=== PATIENT | male | born 1960 | race Caucasian/White ===

== ENCOUNTER 2022-08-08 15:10 | Inpatient (IN) | payer OTHER, SELFPAY ==
[2022-08-08] VITALS (18 sets, daily range): BP systolic 105–142; BP diastolic 58–101; PULSE 65–112; RESP 10–18; TEMP 36.8–37.4; O2SAT 94–100; BMI 19.6
--- NOTE | ~2022-08-08 | XR_ITS ---
XR chest 2V DATE: 08/08/2022 15:51 INDICATION: Midsternal chest pain today TECHNIQUE: PA and lateral views COMPARISON: None FINDINGS: There is moderate bilateral pulmonary hyperinflation. No pulmonary infiltrate or consolidat ion, pleural effusion or pulmonary vascular congestion or pneumothorax. Normal heart size. No hilar or mediastinal enlargement. Included skeletal structures are unremarkable. IMPRESSION: Moderate bilateral hyperinflation; no active cardiopulmonary disease Reviewed, dictated and finalized at location A. IMPRESSION: Moderate bilateral hyperinflation; no active cardiopulmonary diseas e
--- NOTE | 2022-08-08 15:12 | ECG_ITS ---
Measurements Intervals [place] Rate: 98 P: 78 MS: 136 QRS: 47 QRSD: 90 T: 59 QT: 328 QTc: 419 Interpretive Statements SINUS RHYTHM WITH SINUS ARRHYTHMIA BASELINE WANDER- I, AVL, AVF, V4-6 NORMAL ECG NO PREVIOUS ECG AVAILABLE FOR COMPARISON Electronically Signed On 08-08-2022 18:52:17 CDT by Shant Barraza D.O.
[2022-08-08 15:27] LABS: Basophils Absolute Auto 0.1 K/mm3 (0.0-0.1); Basophils Percent Auto 1.1 % (0.2-1.2); Eosinophils Absolute Auto 0.1 K/mm3 (0-0.3); Eosinophils Percent Auto 1.6 % (0-4.4); Hematocrit 43.4 % (42.0-52.0); Hemoglobin 14.6 g/dL (14.0-18.0); Immature Granulocyte Absolute 0.04 K/mm3 (0.00-0.031); Immature Granulocyte Percent A 0.5 % (0-0.5); Lymphocytes Absolute Auto 2.81 K/mm3 (0.9-3.2); Lymphocytes Percent Auto 31.8 % (18.3-44.2); Mean Corpuscular HGB Conc 33.6 g/dl (32-36); Mean Corpuscular Hemoglobin 30.9 pg (26-34); Mean Corpuscular Volume 91.8 fl (80-100); Mean Platelet Volume 10.9 fl (7.4-10.4); Monocytes Absolute Auto 0.7 K/mm3 (0.1-0.6); Monocytes Percent Auto 7.7 % (2.6-8.5); Neutrophils Absolute Auto 5.1 K/mm3 (1.3-6.7); Neutrophils Percent Auto 57.3 % (45.5-73.1); Platelet Count Result 212 k/mm3 (150-375); Red Blood Count 4.73 M/mm3 (4.6-6.20); Red Cell Distribution Width 12.9 % (11.5-14.5); White Blood Count 8.8 K/mm3 (4.5-10.0)
[2022-08-08] MEDS: ASPIRIN 81 MG CHEWABLE TABLET 324 MG PO (15:31)
--- NOTE | 2022-08-08 15:36 | ED.CHESTPAIN ---
HPI - Chest Pain General Chief Complaint: Chest Pain <OSMAR Nieto Last Filed: 08/08/22 19:56> Stated Complaint: chest pain <OSMAR Nieto Last Filed: 08/08/22 19:56> Time Seen by Provider: 08/08/22 15:31 <OSMAR Nieto Last Filed: 08/08/22 19:56> History of Present Illness HPI narrative: Patient is a 70-year-old male with no known past medical history here for evaluation of chest tightness today. Patient states that he was power washing his driveway when he started to develop a tightness in the center of his chest and developed some numbness in both of his arms. The pain lasted for about 10 minutes, resolved once patient stopped exerting himself, but did come back when he began to exert himself again. His pain has subsided since but is still present. He has never had a pain like this in the past. He states the pain was associated with some diaphoresis, but no nausea or vomiting. No shortness of breath, fevers or chills, leg swelling. He is a smoker; no drug use. Has never had a cath or stress test. <OSMAR Nieto Last Filed: 08/08/22 19:56> Related Data Allergies/Adverse Reactions: Allergies Allergy/AdvReac Type Severity Reaction Status Date / Time No Known Allergies Allergy Unknown Verified 02/24/15 08:50 <OSMAR Nieto Last Filed: 08/08/22 19:56> Review of Systems Review of Systems: Gen: Denies fevers or chills Eyes: Denies eye pain or visual change ENT: Denies congestion Respiratory: Denies shortness of breath or cough CV: Reports chest pain. Denies chest pain or palpitations GI: Denies abdominal pain nausea, emesis or diarrhea : denies burning, urgency, frequency or hematuria Musculoskeletal: Denies back pain or muscle pain Neuro: Denies numbness, tingling, weakness or focal weakness Skin: Denies rash Except as documented, all other systems reviewed and negative <OSMAR Nieto Last Filed: 08/08/22 19:56> Exam Narrative: APPEARANCE: Well appearing, no pain in distress, well-nourished. Head: Normocephalic and atraumatic. EYES: PERRLA/EOMI, conjunctivae clear NOSE: No nasal drainage EARS: External ear normal in appearance THROAT: Oropharynx is clear. Mucous membranes are moist. NECK: Supple. No adenopathy, no masses. RESPIRATORY:decreased breath sounds in bilateral upper lung murry. Airway patent, respirations nonlabored. no rales, rhonchi, wheezing. CARDIOVASCULAR: Regular rate and rhythm without murmurs, rubs, or gallops. ABDOMINAL: Normoactive bowel sounds. Soft, nontender, nondistended. No rebound tenderness or guarding. MUSCULOSKELETAL: Extremities are warm and well-perfused. Moves all extremities well. No edema. NEURO: Normal speech. No focal neurologic deficits. SKIN: Skin is warm and dry. No rashes. PSYCHIATRIC: Normal affect/mood. 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 I have had [id number] time with the patient. I discussed need for admission. All questions answered. Patient in agreement. <Ralph Richardson MD - Last Filed: 08/08/22 19:50> Vital Signs Vital signs: Vital Signs Pulse Rate 96 08/08/22 15:14 Respiratory Rate 12 08/08/22 15:14 Blood Pressure 142/91 H 08/08/22 15:14 Pulse Oximetry 98 08/08/22 15:14 Oxygen Delivery Room Air 08/08/22 15:14 Pulse Rate 80 08/08/22 19:38 Respiratory Rate 18 08/08/22 19:38 Blood Pressure 115/95 H 08/08/22 19:38 Pulse Oximetry 97 08/08/22 19:38 Oxygen Delivery Room Air 08/08/22 15:37 <Heather Little PA-C - Last Filed: 08/08/22 19:56> Vital Signs Pulse Rate 96 08/08/22 15:14 Respiratory Rate 12 08/08/22 15:14 Blood Pressure 142/91 H 08/08/22 15:14 Pulse Oximetry 98 08/08/22 15:14
[2022-08-08 15:37] LABS: Alanine Aminotransferase 26 U/L (6-50); Albumin Level 4.7 g/dL (3.5-5.1); Alkaline Phosphatase 91 U/L (38-126); Anion Gap 11 mmol/L (8-16); Aspartate Amino Transferase 28 U/L (17-59); Bilirubin,Total 0.6 mg/dL (0.2-1.3); Blood Urea Nitrogen 21 mg/dL (9-20); Calcium 9.7 mg/dL (8.4-10.2); Carbon Dioxide 21 mmol/L (22-30); Chloride 108 mmol/L (98-107); Estimated CRCL calculation 61 ml/min; Estimated Glomerular Filt Rate > 60; Glucose 128 mg/dL (65-110); Lipase 330 U/L (23-300); Potassium 3.9 mmol/L (3.4-5.0); Sodium 140 mmol/L (137-145)
[2022-08-08 15:47] LABS: Troponin I 0.015 ng/mL (0.000-0.034)
[2022-08-08 15:50] LABS: Partial Thromboplastin Time 27.7 SECONDS (22.3-36.8); Prothrombin Time 13.1 Seconds (11.1-14.7)
[2022-08-08 19:17] LABS: Troponin I 0.256 ng/mL (0.000-0.034)
[2022-08-08] MEDS: NITROGLYCERIN SL 0.4 MG TABLET SUBLINGUAL (19:17)
--- NOTE | 2022-08-08 19:18 | PC.NURSE ---
1916: Pt given 0.4 mg nitro; pt rating pain 4/10, BP 134/87
--- NOTE | 2022-08-08 19:59 | PM.IMHP ---
H&P: HPI History of Present Illness Date/Time: 08/08/22 19:59 Chief Complaint: chest pain Narrative: This is a 62-year-old male with past medical history significant for tobacco dependence patient smokes 1 pack of cigarettes daily. 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 emergency room patient got aspirin and nitro which relieved the pain brought to 2/10 intensity. 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 preliminary workup was significant for: SINUS RHYTHM WITH SINUS ARRHYTHMIA BASELINE WANDER- I, AVL, AVF, V4-6 NORMAL ECG NO PREVIOUS ECG AVAILABLE FOR COMPARISON Troponin x3 0.015/ 0.256/ 0.834 chest x-ray was reported as: IMPRESSION: Moderate bilateral hyperinflation; no active cardiopulmonary disease. Review of Systems Review of Systems: patient presents to the emergency room due to retrosternal chest pain Constitutional: Constitutional: Denies chills, Denies fatigue, Denies fever(s), Denies malaise and Denies night sweats Eyes: Eyes: Denies change in vision ENT: Denies dysphagia, Denies vertigo, Denies dizziness and Denies odynophagia Cardiovascular: Cardiovascular: Reports chest pain, Denies syncope, Denies irregular heart rhythm, Reports lightheadedness, Denies radiating jaw, neck or arm pain, Denies palpitations and Denies dyspnea on exertion Respiratory: Respiratory: Denies chest congestion, Denies excessive phlegm production, Denies pain on inspiration and Denies dyspnea on exertion Gastrointestinal: Gastrointestinal: Denies abdominal pain, Denies dyspepsia and Denies heartburn Genitourinary: Genitourinary: Denies dysuria Musculoskeletal: Musculoskeletal: Denies back pain, Reports myalgias and Reports arthralgias Integumentary/Breasts: Skin/Breast: Denies rash Neurologic: Denies vertigo, Denies dizziness, Denies focal weakness and Denies Sensory deficit (Neuro) Psychiatric: Psychiatric: Reports no additional psychiatric complaints and Reports as per HPI Endocrine: Endocrine: Denies cold intolerance, Denies flushing, Denies heat intolerance, Denies polyphagia, Denies polydipsia and Denies palpitations Hematologic/Lymphatic: Hematologic/Lymphatic: Reports no additional hematologic/lymphatic complaints and Reports as per HPI Allergic/Immunologic: Allergic/Immunologic: Reports no additional allergic/immunologic complaints and Reports as per HPI [facility] Family History Family History (Updated 08/08/22 @ 21:38 by Brittany Gamez RN) Other Patient denies significant medical history Social History Social History Smoking packs per day: 1 Smoking cigarettes per day: 20.0 Years smoked: 40 Smoking pack-years: 40.00 Smoking status: Current every day smoker Tobacco type: cigarettes Alcohol intake: never Substance use type: marijuana Last use: occasional use Spiritual care concerns: No Meds Home Medications and Allergies Home Medications Medication Instructions Recorded Confirmed Type No Home Medications 08/08/22 08/08/22 History Allergies Allergy/AdvReac Type Severity Reaction Status Date / Time No Known Allergies Allergy Unknown Verified 02/24/15 08:50 Vital Signs Vital Signs - 24 hr 08/08/22 15:14 08/08/22 15:36 08/08/22 15:37 Pulse Rate 96 81 Respiratory Rate 12 Blood Pressure 142/91 H Pulse Oximetry 98 99 Oxygen Delivery Room Air Room Air
--- NOTE | 2022-08-08 20:01 | PM.CNCAR ---
Assessment and Plan Assessment and plan (1) Acute non-ST elevation myocardial infarction (NSTEMI): Code(s): I21.4 - Non-ST elevation (NSTEMI) myocardial infarction Status: Acute Assessment and Plan: EKG and 1st troponin unremarkable. 2nd troponin elevated at 0.256Received aspirin and continue daily, NTG SL, restart Heparin drip. Trend troponin. Obtain Lipid panel. Start Metoprolol Tartate 12.5 mg BID and Atorvastatin 80 mg daily. Obtain echo. Discuss risks/benefits/alternative to left heart cath and he is agreeable to it. Will inform HCG in AM for it. (2) Tobacco abuse: Code(s): Z72.0 - Tobacco use Status: Acute Assessment and Plan: Counseled regarding smoking cessation. History of Present Illness History of Present Illness Consult date/time: 08/08/22 20:01 Consult reason: chest pain Reason For Visit: chest pain Narrative: 62 yr old man presented to ER with chest pain. He has a history of smoking. Reports he was power washing his house at 1 pm when he noted severe chest tightness associated with sob, diaphoresis and bilateral arm numbness. He rested, had a sandwich and discomfort subsided. He resumed power washing and pain returned, so his brought him to ER. He was given aspirin and NTG SL and pain is about a 2/10 in intensity. He smokes 1 ppd for 40 years. He normally can walk miles without any problems. Denies orthopnea, PND, edema, dizziness, palpitations. Review of Systems Review of Systems: All systems reviewed & are unremarkable except as noted in HPI and below Constitutional: Constitutional: Reports as per HPI, Denies chills and Denies fever(s) Cardiovascular: Cardiovascular: Reports as per HPI, Reports chest pain, Denies irregular heart rhythm, Denies leg edema and Denies lightheadedness Respiratory: Respiratory: Reports as per HPI and Reports dyspnea Gastrointestinal: Gastrointestinal: Reports as per HPI and Denies abdominal pain Genitourinary: Genitourinary: Reports as per HPI and Denies dysuria Musculoskeletal: Musculoskeletal: Reports as per HPI Neurologic: Reports as per HPI, Denies dizziness and Denies syncope Meds Home Medications and Allergies Allergies Allergy/AdvReac Type Severity Reaction Status Date / Time No Known Allergies Allergy Unknown Verified 02/24/15 08:50 Vital Signs Vital Signs - 24 hr 08/08/22 15:14 08/08/22 15:36 08/08/22 15:37 Pulse Rate 96 81 Respiratory Rate 12 Blood Pressure 142/91 H Pulse Oximetry 98 99 Oxygen Delivery Room Air Room Air 08/08/22 15:15 08/08/22 15:31 08/08/22 16:41 Pulse Rate 112 H 92 89 Respiratory Rate 12 13 13 Blood Pressure 142/91 H 127/88 124/87 Pulse Oximetry 98 100 98 Oxygen Delivery 08/08/22 17:30 08/08/22 19:38 Pulse Rate 79 80 Respiratory Rate 11 L 18 Blood Pressure 128/91 H 115/95 H Pulse Oximetry 97 97 Oxygen Delivery Exam Const: General: cooperative, healthy appearing and comfortable Resp: Auscultation: clear to auscultation bilaterally, no crackles, no rales, no rhonchi and no wheezes Cardio: Jugular venous distension: no JVD Rate: regular rate Rhythm: regular rhythm Heart sounds: no murmurs Peripheral pulses: dorsalis pedis present GI: GI Palp: No abdominal tenderness and Yes Soft to palpation Neuro: General: oriented to person, oriented to place and oriented to time Extrem: Right upper extremity: edema Right lower extremity: no edema Left lower extremity: no edema Results Labs and Meds Result diagrams: 08/08/22 15:19 08/08/22 15:19 Lab results: Cardiac Enzymes 08/08/22 08/08/22 Range/Units 15:19 18:33 AST 28 (17-59) U/L Troponin I 0.015 0.256 H* D (0.000-0.034) ng/mL Coagulation 08/08/22 Range/Units 15:19 PT 13.1 (11.1-14.7) Seconds APTT 27.7 (22.3-36.8) SECONDS CBC 08/08/22 Range/Units 15:19 WBC 8.8 (4.5-10.0) K/mm3 RBC 4.73 (4.6-6.20) M/mm3 Hgb 14.6 (14
[2022-08-08] MEDS: HEPARIN SODIUM 5,000 UNITS/ML VIAL 4000 UNITS IV PUSH (20:08)
[2022-08-08] MEDS: HEPARIN SOD/D5W 100 UNITS/ML 25,000 UNITS/250 ML BAG 8 UNITS IV CONT (20:08)
--- NOTE | 2022-08-08 21:41 | ADMGEN ---
This patient, Omar Valente, was admitted to IMU Room 210-01 at 2120 on 08/08/2022. Patient/family oriented to hospital policies and general routines including ID bracelet, bed and alarms, visiting hours, pain management, procedures, bathroom and other care routines, personal items, smoking policy, room service/diet, and visiting hours. Information on how to activate the Rapid Response Team has been discussed. Patient/Family are encouraged to report perceived risks to care and to ask questions if they do not understand what they are told or what they should do.
[2022-08-08] MEDS: METOPROLOL TARTRATE 12.5 MG TABLET PO (21:49)
[2022-08-08] MEDS: ATORVASTATIN 40 MG TABLET 80 MG PO (21:49)
[2022-08-08 22:31] LABS: Troponin I 0.834 ng/mL (0.000-0.034)
--- NOTE | 2022-08-08 22:48 | ECG_ITS ---
Measurements Intervals [place] Rate: 61 P: 68 SC: 152 QRS: 55 QRSD: 98 T: 57 QT: 391 QTc: 394 Interpretive Statements SINUS RHYTHM NORMAL ECG COMPARED TO ECG 08/08/2022 15:17:37 NO SIGNIFICANT CHANGES Electronically Signed On 08-09-2022 6:39:54 CDT by Shant Barraza D.O.
[2022-08-09] VITALS (37 sets, daily range): BP systolic 112–138; BP diastolic 66–96; PULSE 55–89; RESP 10–20; TEMP 36.4–37; O2SAT 95–99
--- NOTE | 2022-08-09 | ECHO_ITS ---
Patient Info Name: Omar Valente Age: 62 years : 1960 Gender: Male Ht: 71 in Wt: 148 lbs BSA: 1.83 m2 HR: 65 bpm BP: 112 / 72 mmHg Technical Quality: Good Exam Date: 08/09/2022 10:55 AM Exam Location: [facility] Patient Status: Inpatient Admit Date: 08/08/2022 Staff Ordering Physician: Shant Barraza DO Piano Professor: Kane Burns RDCS, RT Attending Provider: Kwame Leonard MD Referring Physician: Madi GUTIERREZ; Exam Type: CA echo doppler color flow Study Info Indications I21.4 - Non-ST elevation (NSTEMI) myocardial infarction Complete two-dimensional, color flow and Doppler transthoracic echocardiogram is performed. Strain analysis performed. Summary 1. Complete two-dimensional, color flow and Doppler transthoracic echocardiogram is performed. 2. Left ventricular chamber dimension is normal. 3. Left ventricular systolic function is normal, estimated at 55-60%. 4. The left ventricular diastolic function is grade II diastolic dysfunction. 5. E/e' 5 is not elevated. 6. Global longitudinal strain is abnormal at -15.3%. Left Ventricle E/e' 5 is not elevated. Global longitudinal strain is abnormal at -15.3%. Left ventricular chamber dimension is normal. Left ventricular systolic function is normal, estimated at 55-60%. The left ventricular diastolic function is grade II diastolic dysfunction. Right Ventricle Right ventricular systolic function is normal and with normal TAPSE 2.5 cm. Right ventricular chamber dimension is normal. Left Atria Left atrial chamber dimension is normal. Right Atria Right atrial chamber dimension is normal. Aortic Valve The aortic valve is trileaflet. There is no aortic valve stenosis. There is no aortic valve regurgitation. Pulmonic Valve There is no pulmonic regurgitation. Mitral Valve There is no mitral valve stenosis. There is no mitral valve regurgitation. Tricuspid Valve There is no tricuspid valve regurgitation. Pericardium/Pleural There is no pericardial effusion. Inferior Vena Cava Normal inferior vena cava with >50% collapse upon inspiration consistent with normal right atrial pressure, 5 mmHg. Aorta The aortic root size at the sinus of Valsalva is normal. Left Ventricular Outflow Tract Name Value Normal LVOT 2D LVOT Diameter 2.1 cm LVOT Doppler LVOT Peak Gradient 3 mmHg LVOT Mean Gradient 2 mmHg LVOT VTI 19 cm LVOT VTI/AV VTI Ratio 0.8 LVOT Stroke Volume 66 ml LVOT CO 4.1 l/min LVOT CI 2.2 l/min/m2 Mitral Valve Name Value Normal MV Doppler MV Decel [place] 138 cm/s2 MV PHT 96 ms
[2022-08-09 02:16] LABS: Partial Thromboplastin Time 51.8 SECONDS (22.3-36.8)
[2022-08-09] MEDS: HEPARIN SODIUM 5,000 UNITS/ML VIAL 4000 UNITS IV PUSH (02:36)
--- NOTE | 2022-08-09 07:45 | PM.PNCARD ---
Progress Note: A&P Assessment and Plan (1) Acute non-ST elevation myocardial infarction (NSTEMI): Code(s): I21.4 - Non-ST elevation (NSTEMI) myocardial infarction Status: Acute Assessment and Plan: EKG and 1st troponin unremarkable. 2nd troponin elevated at 0.256 and 3rd elevated at 0.83. Received aspirin and continue daily, NTG SL prn, on Heparin drip, Metoprolol Tartate 12.5 mg BID and Atorvastatin 80 mg daily. Trend troponin. Obtain Lipid panel. Metoprolol Tartate 12.5 mg BID and Atorvastatin 80 mg daily. Obtain echo. Discuss risks/benefits/alternative to left heart cath and he is agreeable to it. Keep NPO. Consult HCG for it. (2) Tobacco abuse: Code(s): Z72.0 - Tobacco use Status: Acute Assessment and Plan: Counseled regarding smoking cessation. Subjective Date/time seen: 08/09/22 07:45 Interval history: Denies any more chest pain, sob. Exam Const: General: cooperative, healthy appearing and comfortable Resp: Auscultation: clear to auscultation bilaterally, no crackles, no rales, no rhonchi and no wheezes Cardio: Jugular venous distension: no JVD Rate: regular rate Rhythm: regular rhythm Heart sounds: no murmurs Peripheral pulses: dorsalis pedis present GI: GI Palp: No abdominal tenderness and Yes Soft to palpation Neuro: General: oriented to person, oriented to place and oriented to time Extrem: Right upper extremity: edema Right lower extremity: no edema Left lower extremity: no edema Objective Data Vital Signs Vital Signs: Vital Signs - 24 hr 08/08/22 15:14 08/08/22 15:36 08/08/22 15:37 Temperature Pulse Rate 96 81 Respiratory Rate 12 Blood Pressure 142/91 H Pulse Oximetry 98 99 Oxygen Delivery Room Air Room Air 08/08/22 15:15 08/08/22 15:31 08/08/22 16:41 Temperature Pulse Rate 112 H 92 89 Respiratory Rate 12 13 13 Blood Pressure 142/91 H 127/88 124/87 Pulse Oximetry 98 100 98 Oxygen Delivery 08/08/22 17:30 08/08/22 19:38 08/08/22 18:45 Temperature Pulse Rate 79 80 68 Respiratory Rate 11 L 18 12 Blood Pressure 128/91 H 115/95 H 118/85 Pulse Oximetry 97 97 96 Oxygen Delivery 08/08/22 19:16 08/08/22 19:39 08/08/22 19:45 Temperature Pulse Rate 83 77 84 Respiratory Rate 12 10 L 12 Blood Pressure 134/87 115/95 H 115/101 H Pulse Oximetry 99 97 94 Oxygen Delivery 08/08/22 20:16 08/08/22 20:30 08/08/22 20:46 Temperature 99.4 F Pulse Rate 72 76 87 Respiratory Rate 10 L 11 L 14 Blood Pressure 105/68 110/78 105/58 L Pulse Oximetry 97 96 97 Oxygen Delivery 08/08/22 21:20 08/08/22 21:49 08/08/22 21:35 Temperature 98.3 F Pulse Rate 74 69 Respiratory Rate 16 Blood Pressure 108/76 Pulse Oximetry 98 Oxygen Delivery Room Air 08/08/22 22:00 08/09/22 00:00 08/09/22 00:00 Temperature 98.6 F Pulse Rate 65 66 Respiratory Rate 16 Blood Pressure 118/73 Pulse Oximetry 98 98 Oxygen Delivery Room Air 08/09/22 00:00 08/09/22 02:00 08/09/22 04:00 Temperature Pulse Rate 69 62 Respiratory Rate Blood Pressure Pulse Oximetry 99 Oxygen Delivery Room Air 08/09/22 04:00 08/09/22 04:00 08/09/22 06:00 Temperature 98.6 F Pulse Rate 60 89 66 Respiratory Rate 18 Blood Pressure 112/72 Pulse Oximetry 99 Oxygen Delivery Intake/Output Intake/Output: Intake & Output 08/06/22 08/07/22 08/08/22 08/09/22 23:59 23:59 23:59 23:59 Output Total 200 200 Balance -200 -200 Meds/Results Medications: Active Medications Generic Name Dose Route Start Last Admin Trade Name Freq PRN Reason Stop Dose Admin Atorvastatin Calcium 80 mg 08/08/22 20:10 08/08/22 21:49 Atorvastatin 40 Mg Tablet PO 80 mg DAILY ALEENA Administration Heparin Sodium (Porcine) 4,000 units 08/08/22 19:32 08/09/22 02:36 Heparin Sodium 5,000 Units/Ml Vial IV PUSH 4,000 units PRN PRN Administration aPTT less than 55 seconds Heparin Sodium (Porcine)
--- NOTE | 2022-08-09 07:50 | PM.PNCARD ---
Progress Note: A&P Assessment and Plan (1) Acute non-ST elevation myocardial infarction (NSTEMI): Code(s): I21.4 - Non-ST elevation (NSTEMI) myocardial infarction Status: Acute Assessment and Plan: EKG and 1st troponin unremarkable. 2nd troponin elevated at 0.256 and 3rd elevated at 0.83. Received aspirin and continue daily, NTG SL prn, on Heparin drip, Metoprolol Tartate 12.5 mg BID and Atorvastatin 80 mg daily. Trend troponin. Obtain Lipid panel. Metoprolol Tartate 12.5 mg BID and Atorvastatin 80 mg daily. Obtain echo. Discuss risks/benefits/alternative to left heart cath and he is agreeable to it. Keep NPO. Consult HCG for it. (2) Tobacco abuse: Code(s): Z72.0 - Tobacco use Status: Acute Assessment and Plan: Counseled regarding smoking cessation. Subjective Date/time seen: 08/09/22 07:50 Interval history: Denies any more chest pain, sob. Exam Const: General: cooperative, healthy appearing and comfortable Resp: Auscultation: clear to auscultation bilaterally, no crackles, no rales, no rhonchi and no wheezes Cardio: Jugular venous distension: no JVD Rate: regular rate Rhythm: regular rhythm Heart sounds: no murmurs Peripheral pulses: dorsalis pedis present GI: GI Palp: No abdominal tenderness and Yes Soft to palpation Neuro: General: oriented to person, oriented to place and oriented to time Extrem: Right upper extremity: edema Right lower extremity: no edema Left lower extremity: no edema Objective Data Vital Signs Vital Signs: Vital Signs - 24 hr 08/08/22 15:14 08/08/22 15:36 08/08/22 15:37 Temperature Pulse Rate 96 81 Respiratory Rate 12 Blood Pressure 142/91 H Pulse Oximetry 98 99 Oxygen Delivery Room Air Room Air 08/08/22 15:15 08/08/22 15:31 08/08/22 16:41 Temperature Pulse Rate 112 H 92 89 Respiratory Rate 12 13 13 Blood Pressure 142/91 H 127/88 124/87 Pulse Oximetry 98 100 98 Oxygen Delivery 08/08/22 17:30 08/08/22 19:38 08/08/22 18:45 Temperature Pulse Rate 79 80 68 Respiratory Rate 11 L 18 12 Blood Pressure 128/91 H 115/95 H 118/85 Pulse Oximetry 97 97 96 Oxygen Delivery 08/08/22 19:16 08/08/22 19:39 08/08/22 19:45 Temperature Pulse Rate 83 77 84 Respiratory Rate 12 10 L 12 Blood Pressure 134/87 115/95 H 115/101 H Pulse Oximetry 99 97 94 Oxygen Delivery 08/08/22 20:16 08/08/22 20:30 08/08/22 20:46 Temperature 99.4 F Pulse Rate 72 76 87 Respiratory Rate 10 L 11 L 14 Blood Pressure 105/68 110/78 105/58 L Pulse Oximetry 97 96 97 Oxygen Delivery 08/08/22 21:20 08/08/22 21:49 08/08/22 21:35 Temperature 98.3 F Pulse Rate 74 69 Respiratory Rate 16 Blood Pressure 108/76 Pulse Oximetry 98 Oxygen Delivery Room Air 08/08/22 22:00 08/09/22 00:00 08/09/22 00:00 Temperature 98.6 F Pulse Rate 65 66 Respiratory Rate 16 Blood Pressure 118/73 Pulse Oximetry 98 98 Oxygen Delivery Room Air 08/09/22 00:00 08/09/22 02:00 08/09/22 04:00 Temperature Pulse Rate 69 62 Respiratory Rate Blood Pressure Pulse Oximetry 99 Oxygen Delivery Room Air 08/09/22 04:00 08/09/22 04:00 08/09/22 06:00 Temperature 98.6 F Pulse Rate 60 89 66 Respiratory Rate 18 Blood Pressure 112/72 Pulse Oximetry 99 Oxygen Delivery Intake/Output Intake/Output: Intake & Output 08/06/22 08/07/22 08/08/22 08/09/22 23:59 23:59 23:59 23:59 Output Total 200 200 Balance -200 -200 Meds/Results Medications: Active Medications Generic Name Dose Route Start Last Admin Trade Name Freq PRN Reason Stop Dose Admin Aspirin 325 mg 08/09/22 09:00 Aspirin 325 Mg Enteric Tablet PO QAM [facility] Atorvastatin Calcium 80 mg 08/08/22 20:10 08/08/22 21:49 Atorvastatin 40 Mg Tablet PO 80 mg DAILY [facility] Administration Heparin Sodium (Porcine) 4,000 units 08/08/22 19:32 08/09/22 02:36 Heparin Sodium 5,000 Units/Ml Vial IV PUSH 4,000 units
[2022-08-09 08:09] LABS: Cholesterol 186 mg/dL (0-200); HDL Direct 45 mg/dL; Triglycerides 93 mg/dL (<150)
[2022-08-09 08:15] LABS: Partial Thromboplastin Time 106.9 SECONDS (22.3-36.8)
[2022-08-09 08:20] LABS: LDL Cholesterol Direct 124 mg/dL
--- NOTE | 2022-08-09 09:09 | WPDMODSED ---
Moderate Sedation Note-Pt Data Patient Data Diagnosis: Acute coronary syndrome Present Complaint: Chest pain Procedure to be performed/Plan: Left heart catheterization Allergies Allergy/AdvReac Type Severity Reaction Status Date / Time No Known Allergies Allergy Unknown Verified 02/24/15 08:50 Home Medications Medication Instructions Recorded Confirmed Type No Home Medications 08/08/22 08/08/22 History Current Medications: Active Medications Aspirin (Aspirin 325 Mg Enteric Tablet) 325 mg PO QAM [facility] Atorvastatin Calcium (Atorvastatin 40 Mg Tablet) 80 mg PO DAILY [facility] Last Admin: 08/08/22 21:49 Dose: 80 mg Heparin Sodium (Porcine) (Heparin Sodium 5,000 Units/Ml Vial) 4,000 units IV PUSH PRN PRN PRN Reason: aPTT less than 55 seconds Last Admin: 08/09/22 02:36 Dose: 4,000 units Heparin Sodium (Porcine) (Heparin Sodium 5,000 Units/Ml Vial) 2,500 units IV PUSH PRN PRN PRN Reason: aPTT 55 - 70 seconds Heparin Sodium/Dextrose (Heparin Sodium/D5w 100 Units/Ml) 25,000 units in 250 mls @ 11 mls/hr IV CONT .[id number] STA; Protocol Stop: 08/09/22 18:17 Last Infusion: 08/09/22 02:36 Dose: 1,100 units/hr, 11 mls/hr Metoprolol Tartrate (Metoprolol Tartrate 12.5 Mg Tablet) 12.5 mg PO Q12HR [facility] Last Admin: 08/08/22 21:49 Dose: 12.5 mg Perflutren Lipid Microsphere (Perflutren Lipid Microspheres 1.5 Ml Vial Diluted To 10 Ml Total Volume) 0 ml IV PUSH ONCE PRN; Protocol PRN Reason: adequate visualization Stop: 08/10/22 20:11 Sedation/Anesthesia: No previous sedation/anesthesia problems (including family history). [facility] Family History Family History (Updated 08/08/22 @ 21:38 by Brittany Gamez RN) Other Patient denies significant medical history Social History Social History Smoking packs per day: 1 Smoking cigarettes per day: 20.0 Years smoked: 40 Smoking pack-years: 40.00 Smoking status: Current every day smoker Tobacco type: cigarettes Alcohol intake: never Substance use type: marijuana Last use: occasional use Spiritual care concerns: No Mod Sed Physical Exam Physical Exam Pre Procedural Exam: Normal: Nose, Neck, Throat, Airway, Lungs, Heart Size, Heart Rate, Heart Rhythm, Neuro Exam and Extremities and Variation: Appearance (Thin white male no distress) Hours since solid foods: 12 Hours since liquid intake: 12 Mallampati Classification: class II Internal Medicine - PN: Obj Da Vital Signs Vital Signs: Vital Signs - 24 hr 08/08/22 15:14 08/08/22 15:36 08/08/22 15:37 Temperature Pulse Rate 96 81 Respiratory Rate 12 Blood Pressure 142/91 H Pulse Oximetry 98 99 Oxygen Delivery Room Air Room Air 08/08/22 15:15 08/08/22 15:31 08/08/22 16:41 Temperature Pulse Rate 112 H 92 89 Respiratory Rate 12 13 13 Blood Pressure 142/91 H 127/88 124/87 Pulse Oximetry 98 100 98 Oxygen Delivery 08/08/22 17:30 08/08/22 19:38 08/08/22 18:45 Temperature Pulse Rate 79 80 68 Respiratory Rate 11 L 18 12 Blood Pressure 128/91 H 115/95 H 118/85 Pulse Oximetry 97 97 96 Oxygen Delivery 08/08/22 19:16 08/08/22 19:39 08/08/22 19:45 Temperature Pulse Rate 83 77 84 Respiratory Rate 12 10 L 12 Blood Pressure 134/87 115/95 H 115/101 H Pulse Oximetry 99 97 94 Oxygen Delivery 08/08/22 20:16 08/08/22 20:30 08/08/22 20:46 Temperature 37.4 C Pulse Rate 72 76 87 Respiratory Rate 10 L 11 L 14 Blood Pressure 105/68 110/78 105/58 L Pulse Oximetry 97 96 97 Oxygen Delivery 08/08/22 21:20 08/08/22 21:49 08/08/22 21:35 Temperature 36.8 C Pulse Rate 74 69 Respiratory Rate 16 Blood Pressure 108/76 Pulse Oximetry 98 Oxygen Delivery Room Air 08/08/22 22:00 08/09/22 00:00 08/09/22 00:00 Temperature 37.0 C Pulse Rate 65 66 Respiratory Rate 16 Blood Pressure 118/73 Pulse Oximetry 98 98 Oxygen Delivery Room Air 08/09/22 00:00 08/09/22 02:00 08/09/22 04:00 Temperature Pulse Rate 69 62 Res
--- NOTE | 2022-08-09 09:51 | PM.IMPN ---
Progress Note: A&P Assessment and Plan (1) Acute non-ST elevation myocardial infarction (NSTEMI): Code(s): I21.4 - Non-ST elevation (NSTEMI) myocardial infarction Status: Acute Assessment and Plan: Exertional chest pain EKG with no acute changes Initial troponin negative however trended up to 2.1 this morning. Suggestive of non ST-elevation HI On heparin drip Aspirin Metoprolol and atorvastatin as ordered Cardiology consult done Status post cardiac catheterization 08/09/2022: 1.? ? Right coronary dominant circulation with single-vessel coronary disease with moderate but hazy thrombotic appearance is the mid LAD as described above about 60% stenosis but clearly responsible for the ACS presentation given his symptoms and wall motion abnormalities. 2.? ? Mild mid to apical anterior hypokinesia with overall normal ejection fraction 3. ? successful PCI of the mid LAD using the 3.5 x 22 mm MindMixeriro? device described above with an very nice anatomical result On aspirin Plavix metoprolol and atorvastatin (2) Chest pain: Code(s): R07.9 - Chest pain, unspecified Status: Acute Assessment and Plan: supportive care nitroglycerin and morphine as needed (3) Tobacco abuse: Code(s): Z72.0 - Tobacco use Status: Acute Assessment and Plan: Smokes 1 pack cigarettes every day for the past 40 years nicotine patch as needed Counseled on smoking cessation Subjective Date/time seen: 08/09/22 09:51 Interval history: ?This is a 62-year-old male with past medical history significant for tobacco dependence patient smokes 1 pack of cigarettes daily. 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 emergency room patient got aspirin and nitro which relieved the pain brought to 2/10 intensity.? 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 preliminary workup was significant for: SINUS RHYTHM WITH SINUS ARRHYTHMIA BASELINE WANDER- I, AVL, AVF, V4-6 NORMAL ECG NO PREVIOUS ECG AVAILABLE FOR COMPARISON ? Troponin x3 0.015/ 0.256/ 0.834 ?chest x-ray was reported as: IMPRESSION: Moderate bilateral hyperinflation; no active cardiopulmonary disease. 08/09/2022 seen after catheterization. No new complaints. Discussed with the family and the patient. Review of Systems Review of Systems: All systems reviewed & are unremarkable except as noted in HPI and below Exam Narrative: GENERAL: The patient is well developed, not in acute distress HEENT: Nonicteric sclerae, PERRLA, EOMI. Oropharynx clear. Moist mucous membranes. Conjunctivae appear well perfused. CHEST: Chest wall is nontender. HEART: Regular rate and rhythm without murmur, rubs, or gallops LUNGS: Clear to auscultation bilaterally. no respiratory distress ABDOMEN: Soft, positive bowel sounds, non-tender, no organomegaly. SKIN: No rash, no excessive bruising, petechiae, or purpura. NEUROLOGIC: Cranial nerves II-XII intact, alert and oriented x 3, no gross motor deficits EXTREMITIES: no edema, cyanosis or clubbing Objective Data Vital Signs Vital Signs: Vital Signs - 24 hr 08/08/22 15:14 08/08/22 15:36 08/08/22 15:37 Temperature Pulse Rate 96 81 Respiratory Rate 12 Blood Pressure 142/91 H Pulse Oximetry 98 99 Oxygen Delivery Room Air Room Air 08/08/22 15:15 08/08/22 15:31 08/08/22 16:41 Temperature Pulse Rate 112 H 92 89 R
--- NOTE | 2022-08-09 12:18 | WPDCARDPROC ---
Cardiac Cath Procedure Note Date of procedure:: 08/09/22 Performing physician:: Pipo Dash MD Indication:: acute coronary syndrome Brief clinical history:: this is a 62-year-old gentleman with a long history of smoking who came into the hospital over the weekend with chest pain and biomarker evidence of acute coronary syndrome. Procedure Procedure performed:: Left ventriculogram coronary angiogram PCI(DONITA) to the mid LAD Sedation/Medication given:: fentanyl 75 mg Versed 2 mg case start time 1135 a.m. case end time 12:12 p.m. sedation provided by Treva Patrick RN, trained observer Access site:: right femoral artery Estimated blood loss:: 20 cc Procedure note:: patient was brought to the cardiac catheterization the postabsorptive state the right femoral triangle prepared draped fashion. Anesthesia was provided with 1% lidocaine infiltrated locally. Using modified Seldinger technique a 5 Gabonese sheath was placed into right femoral artery. Following this left heart was carried out. I used a 5 Gabonese angled pigtail measure left-sided hemodynamics and to inject the left ventriculogram in the PATEL projection. Following this I used a standard 5 [place]onese FL4 catheter to engage and inject the left coronary artery in multiple projections and then a 5 Gabonese WRP catheter to engage inject the right coronary artery. The cineangiograms were reviewed and PCI recommended and carried out as detailed below. Prior to PCI the 5 Gabonese sheath was changed over a guidewire for a 6 Gabonese sheath. The patient received aspirin and 6 mg of oral clopidogrel. He also was anticoagulated with bolus and infusion of Angiomax for this PCI. Following intervention the sheath was sutured in position was taken recovery and sheath removal. Findings:: Hemodynamics: Central aortic pressure is 132/82 left ventricle 130 over to end-diastolic pressure 6 there gradient pullback across the aortic valve. Left ventricle: The LV is normal in size. The mid to apical anterior segment is very mildly hypodynamic the remainder of the LV contracts well global ejection fraction is 55%. Left main coronary artery is nicely patent the left anterior descending is a moderate caliber artery extending down to just around the apex. There is a hazy thrombotic stenosis in the mid LAD where the septal branch takes off and that distal to the major diagonal. Represents about 60% stenosis but is hazy with overlying thrombus. Circumflex is a moderate caliber artery giving rise to marginal branches the circumflex is smooth and angiographically normal in appearance right coronary artery is large caliber and dominant to the posterior circulation. The right coronary artery appears to be free of disease. Intervention: The left coronary artery was engaged using a 6 Gabonese CLS 3.5 guiding catheter. I used a 0.014 BMW wire to wire the LAD was advanced easily into the apical distal segment of the LAD. I pre-dilated the target lesion using a 3.0 x 15 mm compliant balloon at nominal pressure. I then stented the target lesion using a 3.5 by 22 mm Orsiro stent with an excellent anatomical result. The stent was deployed at 10 atmospheres. Conclusion:: 1. Right coronary dominant circulation with single-vessel coronary disease with moderate but hazy thrombotic appearance is the mid LAD as described above about 60% stenosis but clearly responsible for the ACS presentation given his symptoms and wall motion abnormalities. 2. Mild mid to apical anterior hypokinesia with overall normal ejection fraction 3. successful PCI of the mid LAD using the 3.5 x 22 mm Orsiro device described above with an very nice anatomical result Pipo Dash MD [facility]
[2022-08-09] MEDS: diphenhydrAMINE HCl CAP 25 MG CAPSULE 50 MG PO (13:07)
--- NOTE | 2022-08-09 14:40 | PC.NURSE ---
[facility] flyer was given to patient with admission folder.
[2022-08-09] MEDS: SODIUM CHLORIDE 0.9% IV 1,000 ML 125 ML IV CONT (17:27)
[2022-08-09] MEDS: METOPROLOL TARTRATE 12.5 MG TABLET PO ×2 (17:28→20:37)
[2022-08-09] MEDS: ATORVASTATIN 40 MG TABLET 80 MG PO (17:28)
[2022-08-10] VITALS (9 sets, daily range): BP systolic 105–124; BP diastolic 74–77; PULSE 53–82; RESP 16–18; TEMP 36.3–36.8; O2SAT 98–100
[2022-08-10 04:46] LABS: Basophils Absolute Auto 0.1 K/mm3 (0.0-0.1); Basophils Percent Auto 0.8 % (0.2-1.2); Eosinophils Absolute Auto 0.2 K/mm3 (0-0.3); Eosinophils Percent Auto 1.8 % (0-4.4); Hematocrit 43.9 % (42.0-52.0); Hemoglobin 14.7 g/dL (14.0-18.0); Immature Granulocyte Absolute 0.04 K/mm3 (0.00-0.031); Immature Granulocyte Percent A 0.5 % (0-0.5); Lymphocytes Absolute Auto 2.38 K/mm3 (0.9-3.2); Mean Corpuscular HGB Conc 33.5 g/dl (32-36); Mean Corpuscular Hemoglobin 30.9 pg (26-34); Mean Corpuscular Volume 92.4 fl (80-100); Mean Platelet Volume 10.4 fl (7.4-10.4); Monocytes Absolute Auto 0.7 K/mm3 (0.1-0.6); Monocytes Percent Auto 8.6 % (2.6-8.5); Neutrophils Absolute Auto 5.1 K/mm3 (1.3-6.7); Neutrophils Percent Auto 60.3 % (45.5-73.1); Platelet Count Result 181 k/mm3 (150-375); Red Blood Count 4.75 M/mm3 (4.6-6.20); White Blood Count 8.5 K/mm3 (4.5-10.0)
[2022-08-10 04:58] LABS: Alanine Aminotransferase 25 U/L (6-50); Albumin Level 4.1 g/dL (3.5-5.1); Alkaline Phosphatase 94 U/L (38-126); Anion Gap 6 mmol/L (8-16); Aspartate Amino Transferase 34 U/L (17-59); Blood Urea Nitrogen 15 mg/dL (9-20); Calcium 8.7 mg/dL (8.4-10.2); Carbon Dioxide 22 mmol/L (22-30); Chloride 107 mmol/L (98-107); Estimated CRCL calculation 69 ml/min; Estimated Glomerular Filt Rate > 60; Glucose 104 mg/dL (65-110); Magnesium 2.2 mg/dL (1.6-2.3); Potassium 4.3 mmol/L (3.4-5.0); Sodium 135 mmol/L (137-145)
--- NOTE | 2022-08-10 05:11 | ECG_ITS ---
Measurements Intervals [place] Rate: 67 P: 57 WV: 136 QRS: 28 QRSD: 96 T: 19 QT: 385 QTc: 407 Interpretive Statements SINUS RHYTHM BASELINE ARTIFACT- I, II, III NORMAL ECG COMPARED TO ECG 08/08/2022 23:29:55 NO SIGNIFICANT CHANGES Electronically Signed On 08-10-2022 10:38:20 CDT by Shant Barraza D.O.
--- NOTE | 2022-08-10 08:10 | PM.PNCARD ---
Progress Note: A&P Assessment and Plan (1) Acute non-ST elevation myocardial infarction (NSTEMI): Code(s): I21.4 - Non-ST elevation (NSTEMI) myocardial infarction Status: Acute Assessment and Plan: EKG and 1st troponin unremarkable. 2nd troponin elevated at 0.256 and 3rd elevated at 0.83. On aspirin 81 mg daily, Clopidogrel 75 mg daily, Metoprolol Tartate 12.5 mg BID and Atorvastatin 80 mg daily. 08/09/22 Echo shows EF 55-60%, grade II diastolic dysfunction (E/e' 5). 08/09/[address] Dash shows haziness of about 60% mid LAD stenosis with characteristic of a thrombus; PCI with DONITA to mid LAD with good results. May d/c home from cardiology standpoint and f/u with me in 1 week. (2) Tobacco abuse: Code(s): Z72.0 - Tobacco use Status: Acute Assessment and Plan: Counseled regarding smoking cessation. Subjective Date/time seen: 08/10/22 08:10 Interval history: Denies chest pain, sob. Right groin access site without pain/tenderness/bruising/bleeding/bruit. Exam Const: General: cooperative, healthy appearing and comfortable Resp: Auscultation: clear to auscultation bilaterally, no crackles, no rales, no rhonchi and no wheezes Cardio: Jugular venous distension: no JVD Rate: regular rate Rhythm: regular rhythm Heart sounds: no murmurs Peripheral pulses: dorsalis pedis present GI: GI Palp: No abdominal tenderness and Yes Soft to palpation Neuro: General: oriented to person, oriented to place and oriented to time Extrem: Right upper extremity: edema Right lower extremity: no edema Left lower extremity: no edema Objective Data Vital Signs Vital Signs: Vital Signs - 24 hr 08/09/22 10:00 08/09/22 12:30 08/09/22 12:30 Temperature Pulse Rate 63 64 Pulse Rate [Right Pedal (Dorsalis Pedis)] 64 Respiratory Rate 12 Blood Pressure 138/82 Pulse Oximetry 95 Oxygen Delivery Room Air 08/09/22 13:00 08/09/22 13:00 08/09/22 12:45 Temperature Pulse Rate 58 L 72 Pulse Rate [Right Pedal (Dorsalis Pedis)] 58 L Respiratory Rate 14 12 Blood Pressure 137/81 118/89 Pulse Oximetry 95 96 Oxygen Delivery Room Air Room Air 08/09/22 12:45 08/09/22 13:15 08/09/22 13:15 Temperature Pulse Rate 56 L Pulse Rate [Right Pedal (Dorsalis Pedis)] 72 56 L Respiratory Rate 16 Blood Pressure 125/86 Pulse Oximetry 96 Oxygen Delivery Room Air 08/09/22 13:30 08/09/22 13:30 08/09/22 12:00 Temperature Pulse Rate 55 L Pulse Rate [Right Pedal (Dorsalis Pedis)] 55 L Respiratory Rate 14 Blood Pressure 129/80 Pulse Oximetry 97 Oxygen Delivery Room Air Room Air 08/09/22 13:45 08/09/22 13:45 08/09/22 14:00 Temperature Pulse Rate 59 L 60 Pulse Rate [Right Pedal (Dorsalis Pedis)] 59 L Respiratory Rate 18 19 Blood Pressure 126/87 122/90 Pulse Oximetry 96 96 Oxygen Delivery Room Air Room Air 08/09/22 14:00 08/09/22 14:15 08/09/22 14:15 Temperature Pulse Rate 67 Pulse Rate [Right Pedal (Dorsalis Pedis)] 60 67 Respiratory Rate 15 Blood Pressure 131/82 Pulse Oximetry 98 Oxygen Delivery Room Air 08/09/22 14:30 08/09/22 14:30 08/09/22 14:45 Temperature Pulse Rate 59 L 62 Pulse Rate [Right Pedal (Dorsalis Pedis)] 59 L Respiratory Rate 12 10 L Blood Pressure 114/88 114/96 H Pulse Oximetry 97 96 Oxygen Delivery Room Air Room Air 08/09/22 14:45 08/09/22 15:00 08/09/22 15:00 Temperature Pulse Rate 59 L Pulse Rate [Right Pedal (Dorsalis Pedis)] 62 59 L Respiratory Rate 13 Blood Pressure 127/87 Pulse Oximetry 96 Oxygen Delivery Room Air 08/09/22 15:15 08/09/22 15:15 08/09/22 15:30 Temperature Pulse Rate 58 L 59 L Pulse Rate [Right Pedal (Dorsalis Pedis)] 58 L Respiratory Rate 20 19 Blood Pressure 134/88 133/86 Pulse Oximetry 95 95 Oxygen Delivery Room Air Room Air 08/09/22 15:30 08/09/22 15:45 08/09/22 15:45 Temperature Pulse Rate 59 L Pulse Rate [Ri
--- NOTE | 2022-08-10 08:50 | PM.DS ---
DS: Admitting Diagnosis Discharge Date 08/10/22 Admitting Diagnosis chest pain DS: Discharge Diagnosis Discharge Diagnosis (1) Acute non-ST elevation myocardial infarction (NSTEMI): Code(s): I21.4 - Non-ST elevation (NSTEMI) myocardial infarction Status: Acute (2) Chest pain: Code(s): R07.9 - Chest pain, unspecified Status: Acute (3) Tobacco abuse: Code(s): Z72.0 - Tobacco use Status: Acute DS: Summary Hospital Course Reason for hospitalization: This is a 62-year-old male with past medical history significant for tobacco dependence patient smokes 1 pack of cigarettes daily. 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 emergency room patient got aspirin and nitro which relieved the pain brought to 2/10 intensity.? 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 preliminary workup was significant for: SINUS RHYTHM WITH SINUS ARRHYTHMIA BASELINE WANDER- I, AVL, AVF, V4-6 NORMAL ECG NO PREVIOUS ECG AVAILABLE FOR COMPARISON ? Troponin x3 0.015/ 0.256/ 0.834 ?chest x-ray was reported as: IMPRESSION: Moderate bilateral hyperinflation; no active cardiopulmonary disease. Hospital Course: # Acute non-ST elevation myocardial infarction (NSTEMI): Exertional chest pain EKG with no acute changes Initial troponin negative however trended up to 2.1 this morning.? Suggestive of non ST-elevation HI On heparin drip Aspirin Metoprolol and atorvastatin as ordered Cardiology consult done Status post cardiac catheterization 08/09/2022: 1.? ? Right coronary dominant circulation with single-vessel coronary disease with moderate but hazy thrombotic appearance is the mid LAD as described above about 60% stenosis but clearly responsible for the ACS presentation given his symptoms and wall motion abnormalities. 2.? ? Mild mid to apical anterior hypokinesia with overall normal ejection fraction 3. ? successful PCI of the mid LAD using the 3.5 x 22 mm Orsiro? device described above with an very nice anatomical result On aspirin Plavix metoprolol and atorvastatin. he did well post cath and continue to follow as op basis. # Tobacco abuse: Smokes 1 pack cigarettes every day for the past 40 years nicotine patch as needed Counseled on smoking cessation Time Spent with Patient Time attestation: Total time spent providing and/or coordinating discharge services:40 mins Exam Narrative: GENERAL: The patient is well developed, not in acute distress HEENT: Nonicteric sclerae, PERRLA, EOMI. Oropharynx clear. CHEST: Chest wall is nontender. HEART: Regular rate and rhythm without murmur, rubs, or gallops LUNGS: Clear to auscultation bilaterally. no respiratory distress ABDOMEN: Soft, positive bowel sounds, non-tender, no organomegaly. SKIN: No rash, no excessive bruising, petechiae, or purpura. NEUROLOGIC: Cranial nerves II-XII intact, alert and oriented x 3, no gross motor deficits EXTREMITIES: no edema, cyanosis or clubbing DS: Data Data Completed and Pending Labs on day of discharge: Labs from last 24 hours 08/10/22 08/10/22 04:32 04:32 WBC 8.5 RBC 4.75 Hgb 14.7 Hct 43.9 MCV 92.4 MCH 30.9 MCHC 33.5 RDW 13.0 Plt Count 181 MPV 10.4 Immature Gran % (Auto) 0.5 Neut % (Auto) 60.3 Lymph % (Auto) 28.0 [place] % (Auto) 8.6 H Eos % (Auto) 1.8 Baso % (Auto) 0.8 Lymph # (Auto) 2.38 [place] # (A
[2022-08-10] MEDS: ASPIRIN 81 MG CHEWABLE TABLET PO (10:01)
[2022-08-10] MEDS: CLOPIDOGREL BISULFATE 75 MG TABLET PO (10:02)
[2022-08-10] MEDS: METOPROLOL TARTRATE 12.5 MG TABLET PO (10:24)
[2022-08-10] MEDS: ATORVASTATIN 40 MG TABLET 80 MG PO (10:25)
== END 2022-08-10 10:54 | disposition home or self-care (01) | DRG 247 ==
LOC: ANHED 19:34 → ANHIMU 20:42
PROVIDERS: Emergency Medicine; Internal Medicine Cardiovascular Disease; Specialist; Admitting Provider Internal Medicine; Emergency Provider Emergency Medicine; PCP Family Medicine Adolescent Medicine; Visit Provider Internal Medicine
PROC: 4A023N7 Measurement of Cardiac Sampling and Pressure, Left Heart, Percutaneous Approach (ICD-10-PCS; CPT 93452; principal; 2022-08-09 13:00)
PROC: 027034Z Dilation of Coronary Artery, One Artery with Drug-eluting Intraluminal Device, Percutaneous Approach (ICD-10-PCS; 2022-08-09 13:00)
DX: I21.4 Non-ST elevation (NSTEMI) myocardial infarction (principal); I25.10 Atherosclerotic heart disease of native coronary artery without angina pectoris; F17.210 Nicotine dependence, cigarettes, uncomplicated
CPT/HCPCS: 36415; 71046; 80053; 80061; 83690; 83735; 84484; 85025; 85610; 85730; 93005; 93306; 93458; 99285; A9270; C1725; C1769; C1874; C1887; C1894; C9600; J0583; J1644; J2250; J3010; J7030; J7040

== ENCOUNTER 2022-08-12 10:14 | Observation (INO) | payer OTHER, SELFPAY ==
[2022-08-12] VITALS (38 sets, daily range): BP systolic 94–129; BP diastolic 63–106; PULSE 64–102; RESP 10–25; TEMP 36–36.6; O2SAT 98–100; BMI 19.3
--- NOTE | ~2022-08-12 | US_ITS ---
EXAMINATION: US carotid duplex BI DATE: 08/12/2022 16:00 INDICATION: Dizziness and weakness TECHNIQUE: Grayscale, color Doppler, and pulsed Doppler images of the cervical carotid arteries were obtained. The degree of vessel stenosis is placed in one of the following categories: normal, <50%, 5 0-69%, >=70% but less than near-occlusion, near-occlusion, or total occlusion. Note that percent sten osis relative to normal distal artery lumen diameter is indirectly measured from velocity measurement s as described by Nishant, et al. Radiology 2003; 229:340-346. COMPARISON: None. FINDINGS: RIGHT: The right common carotid artery (CCA) peak systolic velocity (PSV) is 94 cm/s. The right internal car otid artery (ICA) PSV is 63 cm/s. The right ICA end-diastolic velocity (EDV) is 18 cm/s. The right IC A/CCA PSV ratio is 0.8. Grayscale and color Doppler images yield an estimate of <50% diameter reducti on from plaque in the ICA. The external carotid artery (ECA) PSV is 116 cm/s. There is antegrade flow in the right vertebral artery. LEFT: The left CCA PSV is 155 cm/s. The left ICA PSV is 69 cm/s. The left ICA EDV is 21 cm/s. The left ICA/ CCA PSV ratio is 0.4. Grayscale and color Doppler images yield an estimate of <50% diameter reduction from plaque in the ICA. The ECA PSV is 124 cm/s. There is antegrade flow in the left vertebral arter y. IMPRESSION: 1. <50% stenosis in the right internal carotid artery. 2. <50% stenosis in the left internal carotid artery. Reviewed, dictated and finalized at location A.
--- NOTE | ~2022-08-12 | XR_ITS ---
EXAMINATION: XR chest 2V DATE: 08/12/2022 10:33 INDICATION: Dizziness and weakness TECHNIQUE: AP and lateral views of the chest are obtained. COMPARISON: 08/08/2022 FINDINGS: The lungs are free of acute opacities. No pleural effusion or pneumothorax. The cardiomedia stinal silhouette is normal. There is mild thoracic spondylosis. IMPRESSION: 1. No acute cardiopulmonary abnormality. Reviewed, dictated and finalized at location A.
--- NOTE | 2022-08-12 10:20 | ECG_ITS ---
Measurements Intervals [place] Rate: 70 P: 66 [place]: 126 QRS: 64 QRSD: 89 T: 56 QT: 387 QTc: 419 Interpretive Statements SINUS RHYTHM NORMAL ECG COMPARED TO ECG 08/10/2022 09:52:53 NO SIGNIFICANT CHANGES Electronically Signed On 08-12-2022 10:23:13 CDT by Shant Barraza D.O.
--- NOTE | 2022-08-12 10:26 | ED.DIZZY ---
HPI - Dizziness General Chief Complaint: Dizziness Stated Complaint: dizzy and weak, bp 60/40 Time Seen by Provider: 08/12/22 10:17 Source: patient Mode of arrival: EMS Limitations: no limitations History of Present Illness HPI Narrative: Patient is 62 years old white male, came to the emergency room by ambulance because of sudden onset of dizziness and general weakness. Patient could not stand up to go to the bed. Called 911. Patient got discharged from our hospital 2 days ago with a diagnosis of NSTEMI. Patient reports getting out of bed at 730 this morning, feeling okay, lay down and watch TV, took his new medications including metoprolol 12.5 mg, Plavix, aspirin and atorvastatin within few minutes patient developed sudden onset of dizziness, lightheadedness and general weakness, could not get up. Patient blood pressure was low in the ambulance, on arrival to the ED his blood pressure is 118/88, currently patient is asymptomatic as long as laying down in bed. Patient smokes and uses marijuana daily Related Data Allergies Allergy/AdvReac Type Severity Reaction Status Date / Time No Known Allergies Allergy Unknown Verified 02/24/15 08:50 Review of Systems Review of Systems: All systems reviewed & are unremarkable except as noted in HPI and below PMFSH Family History Family History Other Patient denies significant medical history Social History Social History Smoking packs per day: 1 Smoking cigarettes per day: 20.0 Years smoked: 40 Smoking pack-years: 40.00 Smoking status: Current every day smoker Tobacco type: cigarettes Alcohol intake: never Substance use type: marijuana Last use: occasional use Spiritual care concerns: No Exam Narrative: General appearance: Well-developed, well-nourished Skin: Normal color Head: Normocephalic, nontraumatic Eyes: Clear conjunctiva ENT: Oropharynx normal, ears normal, nose normal Neck: Supple, nontender Chest and respiratory: Airway patent, no respiratory distress, no accessory muscle use Heart: Regular rate/rhythm Abdomen: Soft, nontender, no organomegaly, quiet bowel sounds Vascular: Normal peripheral pulses, normal capillary refill. Musculoskeletal: Normal range of motion, nontender back Neurologic: Alert and oriented ?3, [employer] is normal as tested, no gross motor deficit Course Vital Signs Vital signs: Vital Signs Temperature 36.4 C L 08/12/22 10:12 Pulse Rate 77 08/12/22 10:12 Respiratory Rate 18 08/12/22 10:12 Blood Pressure 118/88 08/12/22 10:12 Pulse Oximetry 100 08/12/22 10:12 Oxygen Delivery Room Air 08/12/22 10:12 Temperature 36.4 C L 08/12/22 10:12 Pulse Rate 71 08/12/22 10:22 Respiratory Rate 18 08/12/22 10:12 Blood Pressure 118/88 08/12/22 10:12 Pulse Oximetry 100 08/12/22 10:12 Oxygen Delivery Room Air 08/12/22 10:12 MDM - Dizziness Differential Diagnosis Differential diagnosis: Likely adverse reaction to drug and orthostatic hypotension Imaging Data Radiologist's impression: Impressions Chest X-Ray 08/12/22 10:34 IMPRESSION: 1. No acute cardiopulmonary abnormality. ECG Data EKG #1: Attestation: I personally reviewed and interpreted this ECG as follows: ECG completion date: 08/12/22 ECG completion time: 11:34 Interpretation: Normal sinus rhythm at 70 bpm, normal EKG, compared to EKG August 10, 2022 no significant changes. Critical Care Time Critical Care Time Critical Care Time: Yes Total Critical Care Time: 40 Discharge Plan Discharge Clinical Im
[2022-08-12 10:56] LABS: Basophils Absolute Auto 0.1 K/mm3 (0.0-0.1); Basophils Percent Auto 0.9 % (0.2-1.2); Eosinophils Absolute Auto 0.1 K/mm3 (0-0.3); Eosinophils Percent Auto 1.4 % (0-4.4); Hematocrit 47.7 % (42.0-52.0); Hemoglobin 15.7 g/dL (14.0-18.0); Immature Granulocyte Absolute 0.05 K/mm3 (0.00-0.031); Immature Granulocyte Percent A 0.5 % (0-0.5); Lymphocytes Absolute Auto 3.29 K/mm3 (0.9-3.2); Lymphocytes Percent Auto 33.7 % (18.3-44.2); Mean Corpuscular HGB Conc 32.9 g/dl (32-36); Mean Corpuscular Hemoglobin 31.2 pg (26-34); Mean Corpuscular Volume 94.6 fl (80-100); Mean Platelet Volume 10.8 fl (7.4-10.4); Monocytes Absolute Auto 0.7 K/mm3 (0.1-0.6); Monocytes Percent Auto 7.2 % (2.6-8.5); Neutrophils Absolute Auto 5.5 K/mm3 (1.3-6.7); Neutrophils Percent Auto 56.3 % (45.5-73.1); Platelet Count Result 193 k/mm3 (150-375); Red Blood Count 5.04 M/mm3 (4.6-6.20); White Blood Count 9.8 K/mm3 (4.5-10.0)
[2022-08-12 11:06] LABS: Alanine Aminotransferase 29 U/L (6-50); Albumin Level 4.6 g/dL (3.5-5.1); Alkaline Phosphatase 107 U/L (38-126); Anion Gap 15 mmol/L (8-16); Aspartate Amino Transferase 33 U/L (17-59); Bilirubin,Total 0.8 mg/dL (0.2-1.3); Blood Urea Nitrogen 24 mg/dL (9-20); Calcium 9.5 mg/dL (8.4-10.2); Carbon Dioxide 21 mmol/L (22-30); Chloride 105 mmol/L (98-107); Estimated CRCL calculation 68 ml/min; Estimated Glomerular Filt Rate > 60; Glucose 115 mg/dL (65-110); Lipase 137 U/L (23-300); Potassium 4.1 mmol/L (3.4-5.0); Sodium 141 mmol/L (137-145)
[2022-08-12 11:28] LABS: Troponin I 0.427 ng/mL (0.000-0.034)
[2022-08-12 11:59] LABS: INR 1.1; Prothrombin Time 13.7 Seconds (11.1-14.7)
[2022-08-12 12:00] LABS: Partial Thromboplastin Time 25.2 SECONDS (22.3-36.8)
--- NOTE | 2022-08-12 12:51 | PM.IMHP ---
H&P: HPI History of Present Illness Date/Time: 08/12/22 12:51 Chief Complaint: Dizziness Narrative: This is a 62-year-old male patient who has a history of coronary artery disease. The patient was just discharged from here on 08/10/2022 after receiving a coronary stent. The patient had not been on any medication prior to his stent. He has no prior history of hypertension. The patient came to the emergency room because he felt dizzy and had some generalized weakness. The patient could not stand up to go to the bed. He called 911. The patient recently started taking aspirin, metoprolol, Plavix, and atorvastatin. The patient stated that he took his medication today after he got out of the shower and had not eaten. Patient's blood pressure was low in the ambulance but when he came to the emergency room his blood pressure is 118/88. His troponin is 0.427 which is down from 2 days ago when it was 2.140. The patient was given an aspirin in the emergency room. His chest x-ray was read as no acute cardiopulmonary abnormality. The patient is being admitted to observation of the to service of 08/12/2022 Review of Systems Review of Systems: All systems reviewed & are unremarkable except as noted in HPI and below Constitutional: Constitutional: Reports as per HPI and Reports no additional constitutional complaints Eyes: Eyes: Reports as per HPI and Reports no additional eye complaints ENT: Reports system reviewed and no additional complaints, except as documented and Reports Normal hearing present Cardiovascular: Cardiovascular: Reports no additional cardiovascular complaints Respiratory: Respiratory: Reports no additional respiratory complaints and Reports no additional respiratory complaints Gastrointestinal: Gastrointestinal: Reports as per HPI and Reports no additional gastrointestinal complaints Musculoskeletal: Musculoskeletal: Reports no additional musculoskeletal complaints Integumentary/Breasts: Skin/Breast: Reports system reviewed and no additional complaints, except as docu and Reports as per HPI Neurologic: Reports system reviewed and no additional complaints, except as documented, Reports as per HPI and Reports Normal hearing present Psychiatric: Psychiatric: Reports no additional psychiatric complaints and Reports as per HPI Endocrine: Endocrine: Reports no additional endocrine complaints Hematologic/Lymphatic: Hematologic/Lymphatic: Reports no additional hematologic/lymphatic complaints Allergic/Immunologic: Allergic/Immunologic: Reports no additional allergic/immunologic complaints [facility] Past Medical History Medical History (Updated 08/12/22 @ 15:00 by Cheyanne Mcdaniel NP) Non-STEMI (non-ST elevated myocardial infarction) Tobacco abuse Surgical History Surgical History (Updated 08/12/22 @ 15:00 by Cehyanne Mcdaniel NP) H/O cardiac catheterization H/O elbow surgery H/O hand surgery right hand H/O heart artery stent Stent to the mid LAD 08/09/2022 Family History Family History (Updated 08/12/22 @ 15:00 by Cheyanne Mcdaniel NP) Grandparent Acute myocardial infarction Father Heart disease afib and angiogram Mother Thyroid disease Social History Social History (Updated 08/12/22 @ 15:02 by Cheyanne Mcdaniel NP) Social History: The patient lives with his . He has 2 sons. 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 The patient still occasionally smokes a cigarette. He smokes daily marjuana. He denies any alcohol. His is the durable power personal injury attorney for healthcare. Code status full code Smoking packs per day: 1 Smoking cigarettes per day: 20.0 Years smoked: 40 Smoking pack-years: 40.00 Smoking status: Current every day smoker Tobacco type: cigarettes Additional smoking assessment comments: try to quit Alcohol intake: former Substance use: current Substance use type: marijuana Other substance usage details: uses [employer]
--- NOTE | 2022-08-12 13:35 | ADMGEN ---
This patient, Omar Valente, was admitted to IMU Room 201-01. Patient/family oriented to hospital policies and general routines including ID bracelet, bed and alarms, visiting hours, pain management, procedures, bathroom and other care routines, personal items, smoking policy, room service/diet, and visiting hours. Information on how to activate the Rapid Response Team has been discussed. Patient/Family are encouraged to report perceived risks to care and to ask questions if they do not understand what they are told or what they should do.
[2022-08-12 15:01] LABS: Troponin I 0.314 ng/mL (0.000-0.034)
[2022-08-12] MEDS: SODIUM CHLORIDE 0.9% IV 1,000 ML 150 ML IV CONT (15:25)
--- NOTE | 2022-08-12 16:00 | PM.CNCAR ---
Assessment and Plan Assessment and plan (1) Dizziness: Code(s): R42 - Dizziness and giddiness Status: Acute Assessment and Plan: Resolved. Due to volume depletion. IVF 1 liter NS being given. May d/c home from cardiology standpoint after IVF given. (2) CAD (coronary artery disease): Code(s): I25.10 - Atherosclerotic heart disease of [place] coronary artery without angina pectoris Status: Acute Assessment and Plan: Stable. Troponin trending down as expected from NSTEMI. 08/09/22 Echo shows EF 55-60%, grade II diastolic dysfunction (E/e' 5). 08/09/[address] Dash shows haziness of about 60% mid LAD stenosis with characteristic of a thrombus; PCI with DONITA to mid LAD with good results. Decrease Metoprolol to succinate 12.5 mg daily. (3) Acute hypotension: Code(s): I95.9 - Hypotension, unspecified Status: Acute Assessment and Plan: Due to volume depletion and Metoprolol. (4) Tobacco abuse: Code(s): Z72.0 - Tobacco use Status: Acute Assessment and Plan: Counseled regarding smoking cessation. History of Present Illness History of Present Illness Consult date/time: 08/12/22 16:00 Reason For Visit: hypotension,dizziness,generakized weakness,n stemi Narrative: 62 yr old man presents to ER due to dizziness. He has a history of NSTEMI with stent placement, smoking. He just got discharged from hospital 2 days ago after having stent placed for NSTEMI. He was discharged on Metoprolol Tartate 12.5 mg BID He states he got up this morning and was about to take a shower when he felt dizziness. Ambulance was called and stated his BP was very low. He admits to drinking coke and no water and not much of other fluids. Denies chest pain, sob, orthopnea, PND, edema, palpitations. Review of Systems Review of Systems: All systems reviewed & are unremarkable except as noted in HPI and below Constitutional: Constitutional: Reports as per HPI, Denies chills and Denies fever(s) Cardiovascular: Cardiovascular: Reports as per HPI, Denies chest pain, Denies irregular heart rhythm, Denies leg edema and Reports lightheadedness Respiratory: Respiratory: Reports as per HPI and Reports dyspnea Gastrointestinal: Gastrointestinal: Reports as per HPI and Denies abdominal pain Genitourinary: Genitourinary: Reports as per HPI and Denies dysuria Musculoskeletal: Musculoskeletal: Reports as per HPI Neurologic: Reports as per HPI, Reports dizziness and Denies syncope [facility] Past Medical History Medical History (Updated 08/12/22 @ 16:04 by Shant Barraza DO) Non-STEMI (non-ST elevated myocardial infarction) Tobacco abuse Surgical History Surgical History (Updated 08/12/22 @ 15:00 by Cheyanne Mcdaniel NP) H/O cardiac catheterization H/O elbow surgery H/O hand surgery right hand H/O heart artery stent Stent to the mid LAD 08/09/2022 Family History Family History (Updated 08/12/22 @ 15:00 by Cheyanne Mcdaniel NP) Grandparent Acute myocardial infarction Father Heart disease afib and angiogram Mother Thyroid disease Social History Social History (Updated 08/12/22 @ 15:02 by Cheyanne Mcdaniel NP) Social History: The patient lives with his . He has 2 sons. 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 The patient still occasionally smokes a cigarette. He smokes daily marjuana. He denies any alcohol. His is the durable power staff attorney for healthcare. Code status full code Smoking packs per day: 1 Smoking cigarettes per day: 20.0 Years smoked: 40 Smoking pack-years: 40.00 Smoking status: Current every day smoker Tobacco type: cigarettes Additional smoking assessment comments: try to quit Alcohol intake: former Substance use: current Substance use type: marijuana Other substance usage details: uses marijuana a few times a week. Last use: 08/08/22 Spiritual care concerns: No
--- NOTE | 2022-08-12 20:35 | PC.NURSE ---
PATIENT WAS MADE AWARE THAT THE HOSPITALIST KYM JARVIS NP WANTED HIM TO STAY OVERNIGHT. THE PATIENT WAS UPSET AND STATED THAT HE WAS TOLD BY ANOTHER DR THAT HE COULD BE DISCHARGED TODAY. HE WAS MADE AWARE THAT HE WAS LEAVING AGAINST MEDICAL ADVICE IF HE LEFT. HE INSISTED ON LEAVING. HE SIGNED AMA PAPERS. IV WAS REMOVED FROM LT HAND, AND PATIENT IS GETTING DRESSED TO LEAVE. SALLY Tineo CHARGE NURSE AND KYM JARVIS NP, SENIOR APPLICATIONS ARCHITECT QUINTIN TY RN MADE AWARE.
== END 2022-08-12 20:30 | disposition left against medical advice (07) ==
LOC: ANHED 11:35 → ANHIMU 12:59
PROVIDERS: Admitting Provider Student in an Organized Health Care Education/Training Program; Emergency Provider Emergency Medicine; PCP Family Medicine Adolescent Medicine; Visit Provider Student in an Organized Health Care Education/Training Program
DX: R42 Dizziness and giddiness (principal); E86.9 Volume depletion, unspecified; I25.10 Atherosclerotic heart disease of native coronary artery without angina pectoris; Z95.5 Presence of coronary angioplasty implant and graft; I95.9 Hypotension, unspecified; F17.210 Nicotine dependence, cigarettes, uncomplicated; R53.1 Weakness; I25.2 Old myocardial infarction; I51.89 Other ill-defined heart diseases; F12.90 Cannabis use, unspecified, uncomplicated; Z53.29 Procedure and treatment not carried out because of patient's decision for other reasons; Z79.82 Long term (current) use of aspirin; Z79.02 Long term (current) use of antithrombotics/antiplatelets; Z79.899 Other long term (current) drug therapy; Z82.49 Family history of ischemic heart disease and other diseases of the circulatory system
CPT/HCPCS: 36415; 71046; 80053; 83690; 84484; 85025; 85610; 85730; 93005; 93880; 99285; G0378; J7030

== ENCOUNTER 2022-11-29 07:41 | Inpatient (IN) | payer OTHER, SELFPAY ==
[2022-11-29] VITALS (14 sets, daily range): BP systolic 94–116; BP diastolic 64–87; PULSE 70–156; RESP 16–22; TEMP 36.1–37; O2SAT 95–100; BMI 19.8
--- NOTE | ~2022-11-29 | XR_ITS ---
EXAMINATION: XR chest 1V portable 11/29/2022 08:08 INDICATION: Chest pain PROCEDURE: AP portable chest COMPARISON: 08/12/2022 FINDINGS: The lungs are clear. The cardiomediastinal silhouette is within normal limits. There are no pleural effusions. There is no pneumothorax suspected. IMPRESSION: 1: NO ACUTE CARDIOPULMONARY DISEASE. Reviewed, dictated and finalized at location A. LESS COMMUNICATIONS ENGINEER
--- NOTE | 2022-11-29 07:52 | ECG_ITS ---
Measurements Intervals [place] Rate: 145 P: [place]: 0 QRS: 29 QRSD: 88 T: 46 QT: 286 QTc: 446 Interpretive Statements ATRIAL FIBRILLATION WITH RAPID VENTRICULAR RESPONSE ABNORMAL ECG COMPARED TO ECG 08/12/2022 10:16:35 ATRIAL FIBRILLATION NOW PRESENT Electronically Signed On 11-29-2022 8:01:13 CONTRACT AGENT by Shant Barraza D.O.
[2022-11-29 08:09] LABS: Basophils Absolute Auto 0.1 K/mm3 (0.0-0.1); Basophils Percent Auto 1.1 % (0.2-1.2); Eosinophils Absolute Auto 0.2 K/mm3 (0-0.3); Eosinophils Percent Auto 2.4 % (0-4.4); Hematocrit 44.6 % (42.0-52.0); Hemoglobin 14.7 g/dL (14.0-18.0); Immature Granulocyte Absolute 0.03 K/mm3 (0.00-0.031); Immature Granulocyte Percent A 0.5 % (0-0.5); Lymphocytes Absolute Auto 2.39 K/mm3 (0.9-3.2); Mean Corpuscular Hemoglobin 30.2 pg (26-34); Mean Corpuscular Volume 91.8 fl (80-100); Mean Platelet Volume 10.8 fl (7.4-10.4); Monocytes Absolute Auto 0.9 K/mm3 (0.1-0.6); Monocytes Percent Auto 13.1 % (2.6-8.5); Neutrophils Absolute Auto 3.1 K/mm3 (1.3-6.7); Neutrophils Percent Auto 46.9 % (45.5-73.1); Platelet Count Result 193 k/mm3 (150-375); Red Blood Count 4.86 M/mm3 (4.6-6.20); Red Cell Distribution Width 13.4 % (11.5-14.5); White Blood Count 6.6 K/mm3 (4.5-10.0)
--- NOTE | 2022-11-29 08:16 | ED.ARRPALP ---
HPI - Arrhythmia/Palpitations General Chief Complaint: Arrhythmia/Palpitations Stated Complaint: Chest Pain Time Seen by Provider: 11/29/22 07:51 History of Present Illness HPI narrative: Pt presents with dizziness/lightheadedness from cardiac rehab. Pt denies CP. Pt was doing rehab and walking and felt dizzy. They checked his pulse and it was elevated, rhythm strip showed a fib with rvr. Pt denies CP or history of a fib. Pt had NSTEMI and cardiac stent. Related Data Allergies Allergy/AdvReac Type Severity Reaction Status Date / Time No Known Allergies Allergy Unknown Verified 11/16/22 08:37 Review of Systems Review of Systems: All systems reviewed & are unremarkable except as noted in HPI and below PMFSH Past Medical History Medical History Non-STEMI (non-ST elevated myocardial infarction) (07/2022) Tobacco abuse Surgical History Surgical History H/O cardiac catheterization H/O elbow surgery H/O hand surgery right hand H/O heart artery stent Stent to the mid LAD 08/09/2022 Family History Family History Grandparent Cerebrovascular accident Father Heart disease afib and angiogram Acute myocardial infarction Mother Thyroid disease Social History Social History Social History: The patient lives with his . He has 2 sons. 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 The patient still occasionally smokes a cigarette. He smokes daily marjuana. He denies any alcohol. His is the durable power civil litigation attorney for healthcare. Code status full code Smoking packs per day: 1 Smoking cigarettes per day: 20.0 Years smoked: 40 Smoking pack-years: 40.00 Smoking status: Current every day smoker Tobacco type: cigarettes Additional smoking assessment comments: one pack per week Alcohol intake: never Substance use: current Substance use type: marijuana Other substance usage details: uses marijuana a few times a week. Last use: 08/08/22 Lack of Transportation: No Lack of Food: Never True Current Housing: Decline to Answer Concerned About Future Housing: Decline to Answer Difficulty Paying Gas/Electric Bills: Decline to Answer Difficulty Paying for Meds: Decline to Answer Currently Unemployed: Decline to Answer Education: Decline to Answer Difficulty w/ Childcare or Family Care: Decline to Answer Spiritual care concerns: No Exam Const: General: healthy appearing Orientation/consciousness: patient oriented x3 Limitations: no limitations Chest: Chest palpation & inspection: normal inspection of the chest Resp: Effort & Inspection: normal respiratory effort Auscultation: clear to auscultation bilaterally Cardio: Rhythm: abnormal rhythm GI: Auscultation: normal bowel sounds Skin: General skin exam: normal color Wounds: no wounds Neuro: General: patient oriented x3 and moves all extremities Cranial nerves: Yes Nystagmus not present Speech: normal speech Extrem: General: normal to inspection and no clubbing, cyanosis or edema Psych: Mental Status: mental status grossly normal Affect: normal affect Attitude: cooperative Course Course Emergency Course: pt rate controlled with cardizem bolus and drip rate in 90's, bp after fluids 106/80, no cp, discussed with dr carpenter agrees to admit, will place [facility] as this appears to be new onset a fib Vital Signs Vital signs: Vital Signs Temperature 98.6 F 11/29/22 07:47 Pulse Rate 156 H 11/29/22 07:47 Respiratory Rate 20 11/29/22 07:47 Blood Pressure 103/79 11/29/22 07:47 Pulse Oximetry 100 11/29/22 07:47 Oxygen Delivery Room Air 11/29/22 07:47 Temperature 97.5 F L 11/29/22 16:00 Pulse Rate 120 H 11/29/22 18:00 R
[2022-11-29 08:18] LABS: INR 1.1; Prothrombin Time 13.3 Seconds (11.1-14.7)
[2022-11-29] MEDS: SODIUM CHLORIDE 0.9% IV 1,000 ML 999 ML (08:18)
[2022-11-29 08:19] LABS: Alanine Aminotransferase 33 U/L (6-50); Albumin Level 3.9 g/dL (3.5-5.1); Alkaline Phosphatase 94 U/L (38-126); Anion Gap 4 mmol/L (8-16); Aspartate Amino Transferase 32 U/L (17-59); Bilirubin,Total 0.7 mg/dL (0.2-1.3); Blood Urea Nitrogen 14 mg/dL (9-20); Calcium 8.4 mg/dL (8.4-10.2); Carbon Dioxide 25 mmol/L (22-30); Chloride 105 mmol/L (98-107); Estimated CRCL calculation 55 ml/min; Estimated Glomerular Filt Rate > 60; Glucose 116 mg/dL (65-110); Partial Thromboplastin Time 28.5 SECONDS (22.3-36.8); Potassium 3.9 mmol/L (3.4-5.0); Sodium 134 mmol/L (137-145)
[2022-11-29] MEDS: dilTIAZem HCl INJ 25 MG/5 ML VIAL 20 MG IV PUSH (08:37)
[2022-11-29 08:39] LABS: NT Pro B Type Natriuretic Pept 2210 pg/mL (19.9-100); Troponin I < 0.012 ng/mL (0.000-0.034)
--- NOTE | 2022-11-29 09:12 | PM.IMHP ---
H&P: HPI History of Present Illness Date/Time: 11/29/22 09:12 Chief Complaint: Palpitations Narrative: 62-year-old male with past medical history significant for NSTEMI is presenting from cardiac rehab with new onset atrial fibrillation with RVR. Patient states he was asymptomatic. Per chart from cardiac rehab and ER, patient had been feeling dizzy. Patient states he has been feeling dizzy since being started on metoprolol after his stent was placed in July. He states everyone tunnel he would eventually adjusted no longer feel dizzy, however, he continues to feel the same as when he 1st started this medication. Heart rate was in the 140s to 150s at cardiac rehab and so the patient was sent to the ER. He denies any chest pain, shortness a breath, nausea, vomiting or diarrhea. In the ER, rate was controlled with a diltiazem drip. Cardiology has been consulted. Review of Systems Review of Systems: 12 point review of systems was assessed and was negative except as noted in the HPI [facility] Past Medical History Medical History Non-STEMI (non-ST elevated myocardial infarction) (07/2022) Tobacco abuse Surgical History Surgical History H/O cardiac catheterization H/O elbow surgery H/O hand surgery right hand H/O heart artery stent Stent to the mid LAD 08/09/2022 Family History Family History Grandparent Cerebrovascular accident Father Heart disease afib and angiogram Acute myocardial infarction Mother Thyroid disease Social History Social History Social History: The patient lives with his . He has 2 sons. 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 The patient still occasionally smokes a cigarette. He smokes daily marjuana. He denies any alcohol. His is the durable power criminal attorney for healthcare. Code status full code Smoking packs per day: 1 Smoking cigarettes per day: 20.0 Years smoked: 40 Smoking pack-years: 40.00 Smoking status: Current every day smoker Tobacco type: cigarettes Additional smoking assessment comments: one pack per week Alcohol intake: never Substance use: current Substance use type: marijuana Other substance usage details: uses marijuana a few times a week. Last use: 08/08/22 Lack of Transportation: No Lack of Food: Never True Current Housing: Decline to Answer Concerned About Future Housing: Decline to Answer Difficulty Paying Gas/Electric Bills: Decline to Answer Difficulty Paying for Meds: Decline to Answer Currently Unemployed: Decline to Answer Education: Decline to Answer Difficulty w/ Childcare or Family Care: Decline to Answer Spiritual care concerns: No Meds Home Medications and Allergies Home Medications Medication Instructions Recorded Confirmed Type nitroglycerin 0.4 mg sublingual 0.4 mg sublingual Q5MIN PRN Chest 08/10/22 11/29/22 Rx tablet (Nitrostat) Pain #30 tabs metoprolol succinate 25 mg 12.5 mg PO DAILY #45 tabs 08/25/22 11/29/22 Rx tablet,extended release 24 hr atorvastatin 80 mg tablet 80 mg PO DAILY #90 tabs 08/27/22 11/29/22 Rx aspirin 81 mg chewable tablet See Rx Instructions .Route 09/01/22 11/29/22 Rx .COMPLEX #30 tabs clopidogrel 75 mg tablet See Rx Instructions .Route 09/01/22 11/29/22 Rx .COMPLEX #30 tabs Allergies Allergy/AdvReac Type Severity Reaction Status Date / Time No Known Allergies Allergy Unknown Verified 11/16/22 08:37 Vital Signs Vital Signs - 24 hr 11/29/22 07:47 11/29/22 07:51 Temperature 98.6 F Pulse Rate 156 H 156 H Respiratory Rate 20 Blood Pressure 103/79 Pulse Oximetry 100 Oxygen Delivery Room Air Exam Narrative: General: No acute distress, alert and oriented per baseline
[2022-11-29] MEDS: dilTIAZem 100 MG/100 ML 100 MG/100 ML BAG IV CONT (09:15)
[2022-11-29] MEDS: PANTOPRAZOLE SODIUM IV 40 MG VIAL IV PUSH (10:06)
[2022-11-29 10:21] LABS: Influenza A QL RT-PCR Negative (Negative); Influenza B QL RT-PCR Negative (Negative); SARS-CoV-2 RNA PCR Negative
--- NOTE | 2022-11-29 10:36 | ADMGEN ---
This patient, Omar Valente, was admitted to IMU Room 214-01. Patient/family oriented to hospital policies and general routines including ID bracelet, bed and alarms, visiting hours, pain management, procedures, bathroom and other care routines, personal items, smoking policy, room service/diet, and visiting hours. Information on how to activate the Rapid Response Team has been discussed. Patient/Family are encouraged to report perceived risks to care and to ask questions if they do not understand what they are told or what they should do.
[2022-11-29 11:03] LABS: Troponin I < 0.012 ng/mL (0.000-0.034)
[2022-11-29] MEDS: ENOXAPARIN 60 MG/0.6 ML SYRINGE SUB-Q ×2 (11:30→20:14)
[2022-11-29 13:10] LABS: Troponin I < 0.012 ng/mL (0.000-0.034)
[2022-11-29 16:20] LABS: Troponin I < 0.012 ng/mL (0.000-0.034)
--- NOTE | 2022-11-29 16:34 | PM.CNCAR ---
Assessment and Plan Assessment and plan (1) Atrial fibrillation with rapid ventricular response: Code(s): I48.91 - Unspecified atrial fibrillation Status: Acute Assessment and Plan: Asymptomatic. New onset. Could be related to undiagnosed JEANNIE. [id number] 1. Continue Lovenox while in hospital. Rate control with Diltiazem drip. Start Sotalol 80 mg PO every 12 hours. Check EKG 1-2 hours after each dose to check QT interval. Anticipate 2 nights stay. (2) Dyslipidemia: Code(s): E78.5 - Hyperlipidemia, unspecified Status: Acute Assessment and Plan: On Atorvastatin. (3) CAD (coronary artery disease): Code(s): I25.10 - Atherosclerotic heart disease of [place] coronary artery without angina pectoris Status: Acute Assessment and Plan: Needs to be on dual antiplatelets until at least Jul 2023. (4) Tobacco abuse: Code(s): Z72.0 - Tobacco use Status: Acute Assessment and Plan: Counseled regarding smoking cessation. (5) Hypersomnia: Code(s): G47.10 - Hypersomnia, unspecified Status: Acute Assessment and Plan: Will need outpatient sleep study. History of Present Illness History of Present Illness Consult date/time: 11/29/22 16:34 Reason For Visit: A Fib with RVR Narrative: 62 yr old man who is my regular cardiology patient presents to ER for new onset atrial fibrillation. He has a history of CAD with NSTEMI, smoking, dyslipidemia. He was at cardiac rehab and nurse noted he was in atrial fibrillation and was sent to ER. He has no new symptoms of being in atrial fib. He smokes 3-4 cigarettes per day. He normally can walk miles without any problems, but reports fatigue and dizziness during walking at cardiac rehab and ever since his MD. Admits to snoring, not sleeping well and daytime sleepiness. Denies orthopnea, PND, edema, dizziness, palpitations. Cardiovascular Procedures Contract Admin:: 08/09/[address] Dash: Mid LAD 60% haziness stenosis s/o thrombus; DONITA to mid LAD with good results. Echo/MUGA:: 08/09/22 Echo: EF 55-60%, grade II diastolic dysfunctioni (E/e' 5). Review of Systems Review of Systems: All systems reviewed & are unremarkable except as noted in HPI and below Cardiovascular: Cardiovascular: Reports as per HPI, Denies chest pain, Denies irregular heart rhythm and Denies leg edema Respiratory: Respiratory: Reports as per HPI and Denies dyspnea Gastrointestinal: Gastrointestinal: Reports as per HPI and Denies abdominal pain Genitourinary: Genitourinary: Reports as per HPI and Denies dysuria Musculoskeletal: Musculoskeletal: Reports as per HPI Neurologic: Reports as per HPI, Reports dizziness and Denies syncope [facility] Past Medical History Medical History Non-STEMI (non-ST elevated myocardial infarction) (07/2022) Tobacco abuse Surgical History Surgical History H/O cardiac catheterization H/O elbow surgery H/O hand surgery right hand H/O heart artery stent Stent to the mid LAD 08/09/2022 Family History Family History Grandparent Cerebrovascular accident Father Heart disease afib and angiogram Acute myocardial infarction Mother Thyroid disease Social History Social History Social History: The patient lives with his . He has 2 sons. 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 The patient still occasionally smokes a cigarette. He smokes daily marjuana. He denies any alcohol. His is the durable power immigration attorney for healthcare. Code status full code Smoking packs per day: 1 Smoking cigarettes per day: 20.0 Years smoked: 40 Smoking pack-years: 40.00 Smoking status: Current every day smoker Tobacco type: cigarettes A
--- NOTE | 2022-11-29 16:42 | ECG_ITS ---
Measurements Intervals [place] Rate: 101 P: [place]: 0 QRS: 49 QRSD: 80 T: 54 QT: 338 QTc: 440 Interpretive Statements ATRIAL FIBRILLATION WITH RAPID VENTRICULAR RESPONSE BASELINE ARTIFACT- I, II, III, AVR, AVL, AVF, V1, V4-V6 ABNORMAL ECG COMPARED TO ECG 11/29/2022 07:55:43 HEART RATE HAS DECREASED Electronically Signed On 11-30-2022 8:10:25 INVOICING SPECIALIST by Shant Barraza D.O.
[2022-11-29] MEDS: SOTALOL HCL 80 MG TABLET PO (20:13)
[2022-11-30] VITALS (18 sets, daily range): BP systolic 90–106; BP diastolic 50–91; PULSE 66–114; RESP 12–20; TEMP 36.3–36.9; O2SAT 96–99
[2022-11-30] MEDS: dilTIAZem 100 MG/100 ML 100 MG/100 ML BAG IV CONT (00:45)
--- NOTE | 2022-11-30 08:05 | PM.PNCARD ---
Progress Note: A&P Assessment and Plan (1) Atrial fibrillation with rapid ventricular response: Code(s): I48.91 - Unspecified atrial fibrillation Status: Acute Assessment and Plan: Asymptomatic. New onset. Could be related to undiagnosed JEANNIE. [id number] 1. Continue Lovenox while in hospital. Rate control with Diltiazem drip and d/c as his HR dropped to 50 bpm overnight. Started Sotalol 80 mg PO every 12 hours on 11/29/22. Check EKG 1-2 hours after each dose to check QT interval. If he is still in atrial fib by tomorrow, plan is NICHOLAS/Cardioversion with anesthesia. Anticipate 1 more night stay. (2) Dyslipidemia: Code(s): E78.5 - Hyperlipidemia, unspecified Status: Acute Assessment and Plan: On Atorvastatin. (3) CAD (coronary artery disease): Code(s): I25.10 - Atherosclerotic heart disease of [place] coronary artery without angina pectoris Status: Acute Assessment and Plan: Needs to be on dual antiplatelets until at least Jul 2023. (4) Tobacco abuse: Code(s): Z72.0 - Tobacco use Status: Acute Assessment and Plan: Counseled regarding smoking cessation. (5) Hypersomnia: Code(s): G47.10 - Hypersomnia, unspecified Status: Acute Assessment and Plan: Will need outpatient sleep study. Subjective Date/time seen: 11/30/22 08:05 Interval history: No chest pain or sob or palpitations. He has chronic weakness and dizziness intermittently. Exam Const: General: cooperative, healthy appearing and comfortable Orientation/consciousness: oriented to person, oriented to place and oriented to time Resp: Auscultation: clear to auscultation bilaterally, no crackles, no rales, no rhonchi and no wheezes Cardio: Rate: tachycardic Rhythm: abnormal rhythm Heart sounds: no murmurs Peripheral pulses: dorsalis pedis present Neuro: General: oriented to person, oriented to place and oriented to time Extrem: Right lower extremity: no edema Left lower extremity: no edema Objective Data Vital Signs Vital Signs: Vital Signs - 24 hr 11/29/22 09:15 11/29/22 10:16 11/29/22 10:39 Temperature 96.9 F L Pulse Rate 99 99 70 Respiratory Rate 18 16 Blood Pressure 106/80 103/73 116/87 Pulse Oximetry 100 100 Oxygen Delivery 11/29/22 12:00 11/29/22 14:00 11/29/22 16:00 Temperature Pulse Rate 122 H 80 93 Respiratory Rate Blood Pressure Pulse Oximetry Oxygen Delivery 11/29/22 16:00 11/29/22 18:00 11/29/22 20:00 Temperature 97.5 F L 97.8 F Pulse Rate 89 120 H 94 Respiratory Rate 22 H 18 Blood Pressure 104/65 96/64 L Pulse Oximetry 95 97 Oxygen Delivery 11/29/22 20:13 11/29/22 20:00 11/29/22 20:00 Temperature Pulse Rate 94 87 87 Respiratory Rate 18 Blood Pressure Pulse Oximetry 97 Oxygen Delivery Room Air 11/29/22 21:58 11/29/22 23:09 11/29/22 23:50 Temperature 97.9 F Pulse Rate 96 85 96 Respiratory Rate 20 Blood Pressure 94/65 L Pulse Oximetry 98 Oxygen Delivery 11/29/22 23:50 11/30/22 00:45 11/30/22 02:00 Temperature Pulse Rate 90 74 74 Respiratory Rate 20 Blood Pressure Pulse Oximetry 98 Oxygen Delivery Room Air 11/30/22 04:00 11/30/22 04:00 11/30/22 04:00 Temperature 97.8 F Pulse Rate 114 H 72 114 H Respiratory Rate 20 20 Blood Pressure 90/50 L Pulse Oximetry 97 97 Oxygen Delivery Room Air 11/30/22 06:00 Temperature Pulse Rate 66 Respiratory Rate Blood Pressure Pulse Oximetry Oxygen Delivery Intake/Output Intake/Output: Intake & Output 11/27/22 11/28/22 11/29/22 11/30/22 23:59 23:59 23:59 23:59 Intake Total 1720 300 Output Total 900 Balance 820 300 Meds/Results Medications: Active Medications Generic Name Dose Route Start Last Admin Trade Name Freq PRN Reason Stop Dose Admin Aspirin 81 mg 11/30/22 09:00 Aspirin 81 Mg Chewable Tablet BY MOUTH DAILY ALEENA Atorvastatin Calciu
[2022-11-30] MEDS: CLOPIDOGREL BISULFATE 75 MG TABLET BY MOUTH (08:17)
[2022-11-30] MEDS: ENOXAPARIN 60 MG/0.6 ML SYRINGE SUB-Q ×2 (08:17→20:23)
[2022-11-30] MEDS: PANTOPRAZOLE SODIUM IV 40 MG VIAL IV PUSH (08:17)
[2022-11-30] MEDS: SOTALOL HCL 80 MG TABLET PO ×2 (08:17→20:23)
[2022-11-30] MEDS: ASPIRIN 81 MG CHEWABLE TABLET BY MOUTH (08:17)
[2022-11-30] MEDS: ATORVASTATIN 40 MG TABLET 80 MG PO (08:17)
--- NOTE | 2022-11-30 09:36 | PM.IMPN ---
Progress Note: A&P Assessment and Plan (1) Atrial fibrillation with rapid ventricular response: Code(s): I48.91 - Unspecified atrial fibrillation Status: Acute Assessment and Plan: Asymptomatic, new onset, chads Vasc of 1 Sotalol 80 mg q.12 hours, may need NICHOLAS with cardioversion if patient does not convert to normal sinus rhythm (2) Dyslipidemia: Code(s): E78.5 - Hyperlipidemia, unspecified Status: Acute Assessment and Plan: Continue statin (3) CAD (coronary artery disease): Code(s): I25.10 - Atherosclerotic heart disease of [place] coronary artery without angina pectoris Status: Acute Assessment and Plan: Needs to be on dual anti-platelet therapy until July 2023 (4) Tobacco abuse: Code(s): Z72.0 - Tobacco use Status: Acute Assessment and Plan: Smoking cessation recommended (5) Hypersomnia: Code(s): G47.10 - Hypersomnia, unspecified Status: Acute Assessment and Plan: Check ApneaLink tonight, may need outpatient sleep study Plan DVT prophylaxis with Lovenox GI prophylaxis not indicated Code status full code Subjective Date/time seen: 11/30/22 09:36 Interval history: No overnight events noted. No chest pain or shortness of breath. No nausea, vomiting or diarrhea. No fevers or chills. Patient very irritable about still being here since he has been asymptomatic the whole time. Review of Systems Review of Systems: 12 point review of systems was assessed and was negative except as noted in the HPI Exam Narrative: General: No acute distress, alert and oriented per baseline HEENT: Atraumatic, normocephalic, mucous membranes moist CV: Irregularly irregular, S1, S2 Lungs: Clear to auscultation bilaterally, no rales or crackles noted, no wheezes, good air entry Abdomen: Soft, nontender, nondistended Extremities: Normal to inspection Skin: No rashes noted, no lesions or wounds seen Psych: Euthymic, normal affect Objective Data Vital Signs Vital Signs: Vital Signs - 24 hr 11/29/22 10:16 11/29/22 10:39 11/29/22 12:00 Temperature 96.9 F L Pulse Rate 99 70 122 H Respiratory Rate 18 16 Blood Pressure 103/73 116/87 Pulse Oximetry 100 100 Oxygen Delivery 11/29/22 14:00 11/29/22 16:00 11/29/22 16:00 Temperature 97.5 F L Pulse Rate 80 93 89 Respiratory Rate 22 H Blood Pressure 104/65 Pulse Oximetry 95 Oxygen Delivery 11/29/22 18:00 11/29/22 20:00 11/29/22 20:13 Temperature 97.8 F Pulse Rate 120 H 94 94 Respiratory Rate 18 Blood Pressure 96/64 L Pulse Oximetry 97 Oxygen Delivery 11/29/22 20:00 11/29/22 20:00 11/29/22 21:58 Temperature Pulse Rate 87 87 96 Respiratory Rate 18 Blood Pressure Pulse Oximetry 97 Oxygen Delivery Room Air 11/29/22 23:09 11/29/22 23:50 11/29/22 23:50 Temperature 97.9 F Pulse Rate 85 96 90 Respiratory Rate 20 20 Blood Pressure 94/65 L Pulse Oximetry 98 98 Oxygen Delivery Room Air 11/30/22 00:45 11/30/22 02:00 11/30/22 04:00 Temperature 97.8 F Pulse Rate 74 74 114 H Respiratory Rate 20 Blood Pressure 90/50 L Pulse Oximetry 97 Oxygen Delivery 11/30/22 04:00 11/30/22 04:00 11/30/22 06:00 Temperature Pulse Rate 72 114 H 66 Respiratory Rate 20 Blood Pressure Pulse Oximetry 97 Oxygen Delivery Room Air 11/30/22 08:00 11/30/22 08:17 11/30/22 08:00 Temperature 98.5 F Pulse Rate 86 96 Respiratory Rate 12 Blood Pressure 101/70 Pulse Oximetry 96 Oxygen Delivery Room Air Intake/Output Intake/Output: Intake & Output 11/27/22 11/28/22 11/29/22 11/30/22 23:59 23:59 23:59 23:59 Intake Total 1720 540 Output Total 900 Balance 820 540 Meds/Results Medications: Active Medications Generic Name Dose Route Start Last Admin Trade Name Freq PRN Reason Stop Dose Admin Aspirin 81 mg 11/30/22 09:00 11/30/22 08:17 Aspirin 81 Mg Zamzam
--- NOTE | 2022-11-30 10:40 | ECG_ITS ---
Measurements Intervals [place] Rate: 75 P: RI: 0 QRS: 42 QRSD: 90 T: 41 QT: 392 QTc: 440 Interpretive Statements ATRIAL FIBRILLATION ABNORMAL ECG COMPARED TO ECG 11/29/2022 21:38:01 HEART RATE HAS DECREASED Electronically Signed On 11-30-2022 11:18:01 SQL PROGRAMMER by Shant Barraza D.O.
--- NOTE | 2022-11-30 11:24 | ECG_ITS ---
Measurements Intervals [place] Rate: 78 P: [place]: 0 QRS: 57 QRSD: 93 T: 57 QT: 385 QTc: 440 Interpretive Statements ATRIAL FIBRILLATION ABNORMAL ECG COMPARED TO ECG 11/30/2022 10:54:34 NO SIGNIFICANT CHANGES Electronically Signed On 12-01-2022 7:54:55 [employer] by Shant Barraza D.O.
[2022-12-01] VITALS (17 sets, daily range): BP systolic 82–120; BP diastolic 56–94; PULSE 46–116; RESP 12–24; TEMP 36.1–36.6; O2SAT 96–98
--- NOTE | 2022-12-01 | ECHO_ITS ---
Patient Info Name: Omar Valente Age: 62 years : 1960 Gender: Male Ht: 71 in Wt: 142 lbs BSA: 1.79 m2 HR: 117 bpm Exam Date: 12/01/2022 12:51 PM Exam Location: [facility] Patient Status: Inpatient Admit Date: 11/30/2022 Staff Ordering Physician: Cheryle Carpenter DO Golf Ball Trimmer: Kane Burns RDCS, RT Attending Provider: Cheryle Carpenter DO Referring Physician: Pauline VÁSQUEZ; Exam Type: CA echo transesophageal Study Info Indications I48.1 - Persistent atrial fibrillation Complete two-dimensional, color flow and Doppler transesophageal study is performed. Procedure Details Risks/benefits/alternative to NICHOLAS discuss with patient and he is agreeable to procedure. Patient was anesthetized as per anesthesiology. Vitals monitored with BP 95/60 mmHg, HR 120 bpm in atrial fib, pulse ox 95%. Cetacaine spray to posterior oropharynx x 2. NICHOLAS probe advanced to posterior oropharnxy and into esophagul without incident. Multiple images obtained at various levels of esophagus. Agitated saline administered x1. NICHOLAS probe withdrawn and no blood noted on NICHOLAS probe tip. Patient tolerated procedure well. No complications. Summary 1. Left ventricular systolic function is normal with an ejection fraction of 55-60%. 2. The left ventricular diastolic function is indeterminate as this was not assessed. 3. Left ventricular chamber dimension is normal. 4. Agitated saline injection opacified right side cardiac chambers and few bubbles shunted to left side cardiac chambers suggestive of small patent foramen ovale. 5. There is trace mitral valve regurgitation. Left Ventricle Left ventricular systolic function is normal with an ejection fraction of 55-60%. The left ventricular diastolic function is indeterminate as this was not assessed. Left ventricular chamber dimension is normal. Right Ventricle Right ventricular chamber dimension is normal. Right ventricular systolic function is normal. Left Atria Left atrial chamber dimension is normal. Right Atria Right atrial chamber dimension is normal. Atrial Septum Agitated saline injection opacified right side cardiac chambers and few bubbles shunted to left side cardiac chambers suggestive of small patent foramen ovale. Atrial Appendage There is no thrombus visualized in the left atrial appendage. Aortic Valve The aortic valve is trileaflet. There is no aortic valve stenosis. There is no aortic valve regurgitation. Pulmonic Valve There is no pulmonic regurgitation. Mitral Valve There is no mitral valve stenosis. There is trace mitral valve regurgitation. Tricuspid Valve There is no tricuspid valve regurgitation. Pericardium/Pleural There is no pericardial effusion. Inferior Vena Cava Inferior vena cava is not well visualized. Aorta The aortic root size at the sinus of Valsalva is normal. Report Signatures
--- NOTE | 2022-12-01 07:46 | PM.PNCARD ---
Progress Note: A&P Assessment and Plan (1) Atrial fibrillation with rapid ventricular response: Code(s): I48.91 - Unspecified atrial fibrillation Status: Acute Assessment and Plan: Asymptomatic. New onset. Could be related to undiagnosed JEANNIE. [id number] 1. Continue Lovenox while in hospital. Rate control with Diltiazem drip and d/c as his HR dropped to 50 bpm overnight. Started Sotalol 80 mg PO every 12 hours on 11/29/22. Check EKG 1-2 hours after each dose to check QT interval. He is still in atrial fib, plan for NICHOLAS/Cardioversion with anesthesia today. After successful cardioversion, patient may then be d/c home from cardiology standpoint and f/u with me in 1 week. He will continue aspirin, clopidogrel, Sotalol, Atorvastatin. Discontinued Metoprolol. (2) Dyslipidemia: Code(s): E78.5 - Hyperlipidemia, unspecified Status: Acute Assessment and Plan: On Atorvastatin. (3) CAD (coronary artery disease): Code(s): I25.10 - Atherosclerotic heart disease of [place] coronary artery without angina pectoris Status: Acute Assessment and Plan: Needs to be on dual antiplatelets until at least Jul 2023. (4) Tobacco abuse: Code(s): Z72.0 - Tobacco use Status: Acute Assessment and Plan: Counseled regarding smoking cessation. (5) Hypersomnia: Code(s): G47.10 - Hypersomnia, unspecified Status: Acute Assessment and Plan: Will need outpatient sleep study. Subjective Date/time seen: 12/01/22 07:46 Interval history: No chest pain or sob or palpitations. He has chronic weakness and dizziness intermittently. Exam Const: General: cooperative, healthy appearing and comfortable Orientation/consciousness: oriented to person, oriented to place and oriented to time Resp: Auscultation: clear to auscultation bilaterally, no crackles, no rales, no rhonchi and no wheezes Cardio: Rate: tachycardic Rhythm: abnormal rhythm Heart sounds: no murmurs Peripheral pulses: dorsalis pedis present Neuro: General: oriented to person, oriented to place and oriented to time Extrem: Right lower extremity: no edema Left lower extremity: no edema Objective Data Vital Signs Vital Signs: Vital Signs - 24 hr 11/30/22 08:00 11/30/22 08:17 11/30/22 08:00 Temperature 98.5 F Pulse Rate 86 96 Respiratory Rate 12 Blood Pressure 101/70 Pulse Oximetry 96 Oxygen Delivery Room Air 11/30/22 08:00 11/30/22 10:00 11/30/22 11:55 Temperature 97.3 F L Pulse Rate 97 85 87 Respiratory Rate 14 Blood Pressure 106/91 H Pulse Oximetry 99 Oxygen Delivery 11/30/22 12:00 11/30/22 12:00 11/30/22 15:59 Temperature 98.1 F Pulse Rate 102 H 101 H Respiratory Rate 14 Blood Pressure 99/82 L Pulse Oximetry 99 Oxygen Delivery Room Air 11/30/22 16:00 11/30/22 14:00 11/30/22 16:00 Temperature Pulse Rate 94 109 H Respiratory Rate Blood Pressure Pulse Oximetry Oxygen Delivery Room Air 11/30/22 18:02 11/30/22 18:00 11/30/22 20:23 Temperature Pulse Rate 86 86 78 Respiratory Rate Blood Pressure Pulse Oximetry Oxygen Delivery 11/30/22 20:00 11/30/22 20:00 11/30/22 20:00 Temperature 97.9 F Pulse Rate 88 104 H 105 H Respiratory Rate 18 18 Blood Pressure 99/70 L Pulse Oximetry 97 97 Oxygen Delivery Room Air 11/30/22 22:00 11/30/22 23:19 12/01/22 00:00 Temperature 97.9 F Pulse Rate 112 H 84 78 Respiratory Rate 20 Blood Pressure 90/50 L Pulse Oximetry 98 Oxygen Delivery 12/01/22 00:00 12/01/22 02:00 12/01/22 04:00 Temperature Pulse Rate 78 78 76 Respiratory Rate 20 Blood Pressure Pulse Oximetry 98 Oxygen Delivery Room Air 12/01/22 04:00 12/01/22 05:49 12/01/22 04:00 Temperature 97.9 F Pulse Rate 76 108 H 80 Respiratory Rate 20 20 Blood Pressure 107/64 Pulse Oximetry 98 98 Oxygen Delivery Room Air Intake/Output Intake/Output:
--- NOTE | 2022-12-01 09:15 | PM.IMPN ---
Progress Note: A&P Assessment and Plan (1) Atrial fibrillation with rapid ventricular response: Code(s): I48.91 - Unspecified atrial fibrillation Status: Acute Assessment and Plan: Patient presents with palpitations and found to have new onset AFIb. He is relatvely asymptomatic. [id number] 1. He was on Diltiazem drip but now on Sotalol 80 mg q.12 hours. Plan for NICHOLAS with cardioversion later today. On Lovenox therapeutic dosing. Discussed with Treatment Counselor. Plan to change to Xarelto tonight and hold ASA. Care coordination consult help with medication cost. (2) CAD (coronary artery disease): Code(s): I25.10 - Atherosclerotic heart disease of [place] coronary artery without angina pectoris Status: Acute Assessment and Plan: Hx of NSTEMI in Jul 2022. Adjust therapy to DOAC and Plavix. Continue statin. (3) Dyslipidemia: Code(s): E78.5 - Hyperlipidemia, unspecified Status: Acute Assessment and Plan: LFTs normal. Continue statin (4) Tobacco abuse: Code(s): Z72.0 - Tobacco use Status: Acute Assessment and Plan: Smoking cessation has been recommended. (5) Hypersomnia: Code(s): G47.10 - Hypersomnia, unspecified Status: Acute Assessment and Plan: Check ApneaLink tonight, may need outpatient sleep study Plan DVT prophylaxis with Lovenox GI prophylaxis not indicated Code status full code Subjective Date/time seen: 12/01/22 09:15 Interval history: 62yo male with CAD and tobacco abuse here for new onset AFib. Assuming care. Chart reviewed. Patient slept off and on last night. No chest pain or shortness of breath does have some dyspnea on exertion walking the bathroom. Does have some chest discomfort but only lasts a few seconds. No history of bleeding ulcers or GI bleeding. No recent complaints of melena or hematochezia. Exam Narrative: Gen - NARD Chest - few right base inspiratory crackles o/w clear CV -irregular irregular. Telemetry showing over her AFib with occasional RVR. Abd - Soft, NT/ND, Positive BS Ext - No pedal edema Psych - Nml mood and affect Skin - Warm and dry Objective Data Vital Signs Vital Signs: Vital Signs - 24 hr 11/30/22 10:00 11/30/22 11:55 11/30/22 12:00 Temperature 97.3 F L Pulse Rate 85 87 102 H Respiratory Rate 14 Blood Pressure 106/91 H Pulse Oximetry 99 Oxygen Delivery 11/30/22 12:00 11/30/22 15:59 11/30/22 16:00 Temperature 98.1 F Pulse Rate 101 H Respiratory Rate 14 Blood Pressure 99/82 L Pulse Oximetry 99 Oxygen Delivery Room Air Room Air 11/30/22 14:00 11/30/22 16:00 11/30/22 18:02 Temperature Pulse Rate 94 109 H 86 Respiratory Rate Blood Pressure Pulse Oximetry Oxygen Delivery 11/30/22 18:00 11/30/22 20:23 11/30/22 20:00 Temperature 97.9 F Pulse Rate 86 78 88 Respiratory Rate 18 Blood Pressure 99/70 L Pulse Oximetry 97 Oxygen Delivery 11/30/22 20:00 11/30/22 20:00 11/30/22 22:00 Temperature Pulse Rate 104 H 105 H 112 H Respiratory Rate 18 Blood Pressure Pulse Oximetry 97 Oxygen Delivery Room Air 11/30/22 23:19 12/01/22 00:00 12/01/22 00:00 Temperature 97.9 F Pulse Rate 84 78 78 Respiratory Rate 20 20 Blood Pressure 90/50 L Pulse Oximetry 98 98 Oxygen Delivery Room Air 12/01/22 02:00 12/01/22 04:00 12/01/22 04:00 Temperature Pulse Rate 78 76 76 Respiratory Rate 20 Blood Pressure Pulse Oximetry 98 Oxygen Delivery Room Air 12/01/22 05:49 12/01/22 04:00 12/01/22 08:00 Temperature 97.9 F 97 F L Pulse Rate 108 H 80 107 H Respiratory Rate 20 16 Blood Pressure 107/64 120/94 H Pulse Oximetry 98 98 Oxygen Delivery Intake/Output Intake/Output: Intake & Output 11/28/22 11/29/22 11/30/22 12/01/22 23:59 23:59 23:59 23:59 Intake Total 1720 2550 300 Output Total 900 500 Balance 820 2050 300 Meds/Results
[2022-12-01] MEDS: ATORVASTATIN 40 MG TABLET 80 MG PO (09:19)
[2022-12-01] MEDS: ASPIRIN 81 MG CHEWABLE TABLET BY MOUTH (09:19)
[2022-12-01] MEDS: CLOPIDOGREL BISULFATE 75 MG TABLET BY MOUTH (09:19)
[2022-12-01] MEDS: SOTALOL HCL 80 MG TABLET PO (09:19)
[2022-12-01] MEDS: ENOXAPARIN 60 MG/0.6 ML SYRINGE SUB-Q (09:19)
[2022-12-01] MEDS: PANTOPRAZOLE SODIUM IV 40 MG VIAL IV PUSH (09:20)
--- NOTE | 2022-12-01 11:30 | ECG_ITS ---
Measurements Intervals [place] Rate: 86 P: 66 CA: 132 QRS: 28 QRSD: 89 T: 39 QT: 391 QTc: 470 Interpretive Statements SINUS RHYTHM NORMAL ECG COMPARED TO ECG 12/01/2022 12:05:42 SINUS RHYTHM NOW PRESENT Electronically Signed On 12-01-2022 13:14:19 WOOD CALKER by Shant Barraza D.O.
--- NOTE | 2022-12-01 12:40 | WPDANESEPPF ---
Anes - Initial Pre Proc Eval Procedure: Operation Date: 12/01/22 13:30 Proposed Procedures p Trans Esophageal Echo - Shant Barraza DO s Electrical Cardioversion - Shant Barraza DO Date/Time: 12/01/22 12:40 Surgeon: Cheryle Carpenter DO Pre Op Diagnosis: A Fib with RVR Patient Data Age: 62 Gender: M Height: 1.8 m Weight: 64.5 kg Last Vital Signs Temp 97.1 F L 12/01/22 12:00 Pulse 46 L 12/01/22 12:00 Resp 16 12/01/22 12:00 BP 104/91 H 12/01/22 12:00 Pulse Ox 98 12/01/22 12:00 O2 Del Method Room Air 12/01/22 04:00 Allergies Allergy/AdvReac Type Severity Reaction Status Date / Time No Known Allergies Allergy Unknown Verified 11/16/22 08:37 Home Medications Medication Instructions Recorded Confirmed Type nitroglycerin 0.4 mg sublingual 0.4 mg sublingual Q5MIN PRN Chest 08/10/22 11/29/22 Rx tablet (Nitrostat) Pain #30 tabs metoprolol succinate 25 mg 12.5 mg PO DAILY #45 tabs 08/25/22 11/29/22 Rx tablet,extended release 24 hr atorvastatin 80 mg tablet 80 mg PO DAILY #90 tabs 08/27/22 11/29/22 Rx aspirin 81 mg chewable tablet See Rx Instructions .Route 09/01/22 11/29/22 Rx .COMPLEX #30 tabs clopidogrel 75 mg tablet See Rx Instructions .Route 09/01/22 11/29/22 Rx .COMPLEX #30 tabs Patient hx anesthesia problems: none Family hx anesthesia problems: none Results Review: All pre-operative results and documents have been reviewed as part of the pre-operative evaluation. [facility] Past Medical History Medical History Non-STEMI (non-ST elevated myocardial infarction) (07/2022) Tobacco abuse Surgical History Surgical History H/O cardiac catheterization H/O elbow surgery H/O hand surgery right hand H/O heart artery stent Stent to the mid LAD 08/09/2022 Family History Family History Grandparent Cerebrovascular accident Father Heart disease afib and angiogram Acute myocardial infarction Mother Thyroid disease Social History Social History Social History: The patient lives with his . He has 2 sons. 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 The patient still occasionally smokes a cigarette. He smokes daily marjuana. He denies any alcohol. His is the durable power gas cutting machine operator for healthcare. Code status full code Smoking packs per day: 1 Smoking cigarettes per day: 20.0 Years smoked: 40 Smoking pack-years: 40.00 Smoking status: Current every day smoker Tobacco type: cigarettes Additional smoking assessment comments: one pack per week Alcohol intake: never Substance use: current Substance use type: marijuana Other substance usage details: uses marijuana a few times a week. Last use: 08/08/22 Lack of Transportation: No Lack of Food: Never True Current Housing: Decline to Answer Concerned About Future Housing: Decline to Answer Difficulty Paying Gas/Electric Bills: Decline to Answer Difficulty Paying for Meds: Decline to Answer Currently Unemployed: Decline to Answer Education: Decline to Answer Difficulty w/ Childcare or Family Care: Decline to Answer Spiritual care concerns: No Anes - Eval Final PreProcedure Day of Procedure 12/01/22 12:40 Patient weight: normal Heart: irregular rhythm Lungs: clear to auscultation Airway: Mallampati scale class III Neurological: alert and oriented Last oral intake: >/= 8 hours ASA classification: IV Emergent: no Anesthetic plan: proceed Anesthesia type and monitoring: general GIVS and standard monitoring Results Review: All pre-operative results and documents have been reviewed as part of the pre-operative evaluation. Informed Consent: The patient's anesthetic plan and its attendant risks and benefits
--- NOTE | 2022-12-01 13:30 | ECG_ITS ---
Measurements Intervals [place] Rate: 109 P: [place]: 0 QRS: 43 QRSD: 88 T: 45 QT: 361 QTc: 488 Interpretive Statements ATRIAL FIBRILLATION WITH RAPID VENTRICULAR RESPONSE ABNORMAL ECG COMPARED TO ECG 11/30/2022 22:12:43 NO SIGNIFICANT CHANGES Electronically Signed On 12-01-2022 13:10:42 DEICER KIT ASSEMBLER by Shant Barraza D.O.
--- NOTE | 2022-12-01 14:17 | SUR.OPER ---
1252 Dr. Barraza sprayed patient's oropharynx with 20% Benzocaine oral spray in preparation for NICHOLAS.,
--- NOTE | 2022-12-01 14:45 | WPDCARDVER ---
Cardioversion Cardioversion Date of procedure: 12/01/22 Procedure: DC cardioversion Pre-op diagnosis: Symptomatic Atrial fibrillation Post-op diagnosis: Same Indications: Symptomatic atrial fibrillation Description of procedure: Risks/benefits/alternative to cardioversion discuss with patient and he is agreeable to procedure. NICHOLAS was performed prior to this and showed no left atrial or left atrial thrombus. Defibrillator pads placed in anterior and posterior chest. Patient anesthetized as per anesthesiology. HR was 120 bpm in atrial fibrillation. BP 95/60 mmHg. Cardioversion set at 200 J biphasic synchronized energy and defibrillated x1 with successful hoahaoism of sinus rhythm. No complications. Patient tolerated procedure well. Sedation: As per anesthesiology Conclusion: 1. Successful DC cardioversion from atrial fibrillation to sinus rhythm. AM Billing for Cardioversion: Cardioversion
--- NOTE | 2022-12-01 16:33 | PM.DS ---
DS: Admitting Diagnosis Discharge Date 12/01/22 Admitting Diagnosis AFib DS: Discharge Diagnosis Discharge Diagnosis (1) Atrial fibrillation with rapid ventricular response: Code(s): I48.91 - Unspecified atrial fibrillation Status: Acute (2) CAD (coronary artery disease): Code(s): I25.10 - Atherosclerotic heart disease of [place] coronary artery without angina pectoris Status: Acute (3) Dyslipidemia: Code(s): E78.5 - Hyperlipidemia, unspecified Status: Acute (4) Tobacco abuse: Code(s): Z72.0 - Tobacco use Status: Acute (5) Hypersomnia: Code(s): G47.10 - Hypersomnia, unspecified Status: Acute DS: Summary Hospital Course Reason for hospitalization: 62yo male with CAD and tobacco abuse here for new onset AFib. Please see H&P for details Hospital Course: Patient presents with palpitations and found to have new onset AFIb. He is relatively asymptomatic. [id number] 1. He was on Diltiazem drip but transitioned to Sotalol 80 mg q.12 hours. He underwent NICHOLAS with cardioversion on 12/01/22. Was on Lovenox therapeutic dosing and changed to Xarelto. Discussed with Financial Solutions Advisor. He was educated about the benefits of smoking cessation. He overall did well and was able to be discharged to home on 12/01/2022. Status at Discharge Cognitive/behavioral status at discharge: stable Time Spent with Patient Time attestation: Total time spent providing and/or coordinating discharge services: 35 minutes Time spent: Greater than 30 minutes Exam Narrative: Gen - NARD Chest - few right base inspiratory crackles o/w clear CV -irregular irregular. Telemetry showing over her AFib with occasional RVR. Abd - Soft, NT/ND, Positive BS Ext - No pedal edema Psych - Nml mood and affect Skin - Warm and dry Discharge Plan Discharge Attending physician on discharge: César Parham Consulting providers: Shant Barraza Discharging Clinician: César Parham Anticipated Discharge Date/Time: 12/01/22 16:37 Patient Disposition: Home, Self-Care Activity: as tolerated Diet: heart healthy Discharge Instructions: Please refrain from using all tobacco products. Contact your doctor or call 911 and come to the Emergency Room if you have any type of trauma, lightheadedness with standing or other worrisome symptoms. Avoid NSAIDs (ibuprofen, naproxen, Aleve). Tylenol is safe to take. Follow-up with your primary care provider in 1-2 weeks. Please call for appointment. Follow-up with Financial Solutions Advisor in 1 week. Please call for appointment. Thank you for using [facility] for your health care needs. Patient Instructions: Antibiotic Form, Deep Sedation (DC), Cardioversion (DC), Transthoracic Echocardiogram (DC) Stand Alone Forms: General Discharge Information Follow-up/Referrals: Shant Barraza DO [Physician] - Call for Appointment John Bowens MD [Primary Care Provider] - Call for Appointment Discharge Medications: New sotalol 80 mg Tablet 80 mg PO Q12HR Qty: 60 1RF Xarelto 20 mg Tablet 20 mg PO DAILY@1700 Qty: 30 1RF Continued metoprolol succinate 25 mg tablet extended release 24 hr 12.5 mg PO DAILY Qty: 45 2RF nitroglycerin [Nitrostat] 0.4 mg Tablet, Sublingual 0.4 mg sublingual Q5MIN PRN (Reason: Chest Pain) Qty: 30 0RF atorvastatin 80 mg tablet 80 mg PO DAILY Qty: 90 2RF clopidogrel 75 mg tablet See Rx Instructions .ROUTE .COMPLEX Qty: 30 5RF Dose Instruction: TAKE 1 TABLET BY MOUTH EVERY DAY Rx Instructions: TAKE 1 TABLET BY MOUTH EVERY DAY Discontinued aspirin 81 mg tablet,chewable See Rx Instructions .ROUTE .COMPLEX Qty: 30 5RF Dose Instruction: TAKE 1 TABLET BY MOUTH EVERY DAY AT 0800 Rx Instructions: TAKE 1 TABLET BY MOUTH EVERY DAY AT 0800 Date of admission: 11/30/22 10:58 Primary Care Provider: John Bowens Admitting Provider:
--- NOTE | 2022-12-02 08:08 | WPDANESPN ---
Anes - Prog Note Post-Op Date/Time: 12/02/22 08:08 Vital Signs: Last Vital Signs Temp 36.1 C L 12/01/22 16:00 Pulse 80 12/01/22 16:00 Resp 16 12/01/22 16:00 BP 91/64 L 12/01/22 16:00 Pulse Ox 98 12/01/22 16:00 O2 Del Method Room Air 12/01/22 16:00 O2 Flow Rate 2 12/01/22 13:25 Pain Score (VAS): 0 I/O: Intake & Output 12/01/22 12/02/22 12/02/22 23:59 07:59 15:59 Intake Total 620 Balance 620 Laboratory Tests 11/29/22 08:02 11/29/22 08:02 Patient Feedback: Patient satisfied with anesthetic care.
== END 2022-12-01 17:47 | disposition home or self-care (01) | DRG 310 ==
LOC: ANHED 09:11 → ANHIMU 09:32
PROVIDERS: Internal Medicine Cardiovascular Disease; Admitting Provider Student in an Organized Health Care Education/Training Program; Emergency Provider Emergency Medicine; PCP Family Medicine Adolescent Medicine; Visit Provider Student in an Organized Health Care Education/Training Program
PROC: 5A2204Z Restoration of Cardiac Rhythm, Single (ICD-10-PCS; CPT 93312; principal; 2022-12-01 13:30)
PROC: 5A2204Z Restoration of Cardiac Rhythm, Single (ICD-10-PCS; 2022-12-01 13:30)
DX: I48.91 Unspecified atrial fibrillation (principal); I25.10 Atherosclerotic heart disease of native coronary artery without angina pectoris; I25.2 Old myocardial infarction; E78.5 Hyperlipidemia, unspecified; F12.90 Cannabis use, unspecified, uncomplicated; G47.10 Hypersomnia, unspecified; F17.210 Nicotine dependence, cigarettes, uncomplicated; Z20.822 Contact with and (suspected) exposure to COVID-19; Z95.5 Presence of coronary angioplasty implant and graft
CPT/HCPCS: 36415; 71045; 80053; 83735; 83880; 84484; 85025; 85610; 85730; 87636; 92960; 93005; 93312; 93320; 93325; 96361; 96372; 96374; 96375; 96376; 99285; A9270; C9113; G0378; J1650; J2704; J7030

== ENCOUNTER 2022-12-23 07:15 | Outpatient (RCR) | payer OTHER, SELFPAY ==
[2022-09-07 08:21] VITALS: PULSE 88
== END 2022-12-23 08:42 | disposition home or self-care (01) ==
LOC: ANHCPREHAB 07:15
PROVIDERS: PCP Family Medicine Adolescent Medicine; Visit Provider Internal Medicine Cardiovascular Disease
DX: Z95.5 Presence of coronary angioplasty implant and graft (principal)
CPT/HCPCS: 93798

== ENCOUNTER 2022-12-30 09:03 | Outpatient (CLI) | payer OTHER, SELFPAY ==
--- NOTE | 2023-01-15 23:13 | WPDHOMESLEEP ---
Sleep Study - Home Unattended Date of Study: 12/30/22 Ordering Provider: Shant Barraza DO Interpreting Provider: Madelyn Lopez DO Home Sleep Study Type: Watch PAT Height: 1.8 m Weight: 63.503 kg Body Mass Index: 19.5 Neck Circumference (inches): 14.25 [place]: 3 Reason for Sleep Study Multiple nighttime awakenings Sleep History The patient is a 62-year-old male with atrial fibrillation, coronary artery disease, hx of cardiac stent, hx of NSTEMI and tobacco use that had a sleep study ordered by his site superintendent for evaluation of sleep apnea. The patient denies awakening from sleep short of breath. He rarely awakens at night with heartburn, belching or cough. He frequently snores loudly enough that others complain. He occasionally has trouble sleeping when he has a cold. He denies waking up gasping for air throughout the night. He denies having breathing problems at night observed by himself or others. He rarely sweats excessively at night. He denies having heart palpitations or irregular heartbeats during the night. He denies falling asleep during the day and while driving. He denies sleep paralysis, cataplexy and hypnagogic / hypnopompic hallucinations. He denies having trouble at school or work due to sleepiness. He denies feeling afraid of going to sleep. He rarely has nightmares. He rarely remembers his dreams. He denies having thoughts racing through his mind. He denies feeling sad or depressed. He rarely has anxiety. He rarely has muscular tension. He denies noticing parts of his body jerk. He denies kicking during the night. He denies having crawling and aching feelings in his legs. He rarely has leg pain during the night. He denies grinding his teeth during sleep and denies awakening with morning jaw pain. He is occasionally bothered by pain during the day but never awakened by pain during the night. He occasionally wakes up feeling stiff in the morning. He occasionally wakes up with sore or achy muscles. He occasionally wakes up with pain in the neck, spine or other joints. He goes to bed between 9-10 p.m. on both weekdays and weekends. He is able to fall asleep relatively quickly. He wakes up 4-5 times throughout the night for unknown reasons. He is able to fall back asleep immediately. He wakes up between 6-7 a.m. on both weekdays and weekends. He typically gets 6-8 hours of sleep per night. He will stay in bed to read a little bit after waking up in the morning. He currently lives with his . He does not consume any caffeinated beverages within 2 hours of bedtime. He does not engage in physical exercise before bedtime. He will watch television before falling asleep. He will take naps in the afternoon or the evening and they are refreshing. He drinks 3 cans of Coke per day. He currently smokes cigarettes. He denies alcohol use. He does use marijuana recreationally. [facility] Past Medical History Medical History Acute non-ST elevation myocardial infarction (NSTEMI) Non-STEMI (non-ST elevated myocardial infarction) (07/2022) Tobacco abuse Surgical History Surgical History H/O cardiac catheterization H/O elbow surgery H/O hand surgery right hand H/O heart artery stent Stent to the mid LAD 08/09/2022 Family History Family History Grandparent Cerebrovascular accident Father Heart disease afib and angiogram Acute myocardial infarction Mother Thyroid disease Social History Social History Social History: The patient lives with his . He has 2 sons. 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 The patient still occasionally smokes a cigarette. He smokes daily marjuana. He denies any alcohol. His is the durable pow
[2023-01-15 23:24] VITALS: BMI 19.5
== END 2022-12-31 09:11 | disposition home or self-care (01) ==
LOC: ANHCSM 09:04
PROVIDERS: PCP Family Medicine Adolescent Medicine; Visit Provider Internal Medicine Cardiovascular Disease
DX: G47.9 Sleep disorder, unspecified (principal); G47.10 Hypersomnia, unspecified
CPT/HCPCS: 95800